=== PATIENT | female | born 1960 | race Caucasian/White ===

== ENCOUNTER 2018-08-18 04:28 | Inpatient (IN) ==
--- NOTE | 2018-08-18 04:37 | ED ---
HPI General Chief Complaint: Stroke Alert Stated Complaint: STROKE ALERT Time Seen by Provider: 08/18/18 04:33 Source: EMS Mode of arrival: EMS Limitations: no limitations History of Present Illness HPI Narrative: 58-year-old female presents to the emergency department by EMS transport for evaluation of new onset left-sided weakness and mutism. Patient reportedly went to bed in the early a.m. in preparation for awakening to travel to [place] to take her daughter for surgery. Patient had initially awakened along with the rest of the household and was reportedly normal and voicing no concerns or complaints and demonstrating no abnormalities. Patient subsequently was not seen by family for approximately 30 minutes while she reportedly was getting ready to leave and they were also getting dressed and prepared to leave for their trip to [place]. Reportedly daughter went to check on her mother and found her laying on the bed supine staring straight at the ceiling and nonverbal with a visible left facial droop and demonstrating left-sided weakness. Patient was awake was able to communicate using sign language but was completely nonverbal and mute. Patient was able to follow commands and had evidence of understanding but was not able to verbally communicate. EMS was called. No report of injury fall or past medical history nondiabetic no history of atrial fibrillation and no blood thinning agents taken by the patient and no prescription medications. According to EMS upon their arrival patient was still noted to have mild right facial droop and weakness of the left upper extremity. Patient was not able to ambulate to the stretcher due to left lower extremity weakness. Upon arrival to the emergency department patient with improvement of left upper extremity lower extremity strength however remains mute. Stroke alert had been called in the field prior to patient's arrival and upon her arrival telerad neurologist, Dr Gravse, was on line and evaluating the patient while en route to CT on EMS stretcher. Onset (ago): minute(s) (50) Time: 04:25 Last Observed Normal: 03:30 Timing confirmed by: family member Location: Reports speech, left face, left arm and left leg History of same: No Severity: severe Quality: Reports weak and improving Relieving factors: none Exacerbating factors: none Context: Reports sudden onset On Anticoagulants: No Associated symptoms: Denies confusion, chest pain, cough, diaphoresis, fever/ chills, headaches, loss of appetite, malaise, nausea/vomiting, vertigo, seizures , shortness of breath, syncope and weakness Treatments Prior to Arrival: Reports other (ns bolus 500 cc per EMS) Related Data Home Medications Medication Instructions Recorded Confirmed duloxetine [Cymbalta] 60 mg PO DAILY 08/18/18 08/18/18 Allergies Allergy/AdvReac Type Severity Reaction Status Date / Time No Known Allergies Allergy Verified 08/18/18 04:33 Review of Systems ROS: all other systems reviewed are negative PMFSH History History Provided By: Patient (no pmh) Medical History Medical History Depression (Acute) Surgical history unknown (Acute) Social History Social History Recent Travel in [facility] within the Last 8 Weeks: No Recent Out of Country Travel within the Last 8 Weeks: No Exam Narrative Exam Narrative: GENERAL: Well-developed well-nourished female awake in no apparent distress nonverbal GCS 11 (non-verbal communication gcs 15) SKIN: Focused skin assessment warm/dry. HEAD: Atraumatic. Normocephalic. EYES: Pupils equal and round and reactive to light. No scleral icterus. No injection or drainage. ENT: No nasal bleeding or discharge. Mucous membranes pink and moist. Airway is patent intact gag. NECK: Trachea midline. No JVD. CARDIOVASCULAR: Regular rate and rhythm. No murmur appreciated. RESPIRATORY: No accessory muscle use. Clear to auscultation. Breath sounds equal bilaterally. GASTROINTESTINAL: Abdomen soft, non-tender, nondistended. Hepatic and splenic margins not palpable. MUSCULOSKELETAL: No obvious deformities. No clubbing. No cyanosis. No edema. NEUROLOGICAL: Awake and alert. No obvious cranial nerve deficits. Motor grossly within normal limits. Expressive aphasia,mute. PSYCHIATRIC: Appropriate mood and affect; insight and judgment normal. Course Initial Documented Vital Signs Pulse Oximetry 95 08/18/18 04:55 Last Documented Vital Signs Pulse Oximetry 99 08/18/18 05:00 Critical Care Time Critical Care Time: Yes Total Critical Care Time: 30 Attestation: Aggregate critical care time was 30 minutes. Time to perform other separately billable procedures was not included in the critical care time. My time did not include minutes spent treating any other patients simultaneously or on activities that did not directly contribute to the patient's treatment. The services I provided to this patient were to treat and/or prevent clinically significant deterioration that could result in: Intracranial hemorrhage, respiratory arrest, I provided critical care services requiring my management, as noted below: Chart data review, documentation time, medication orders and management, vital sign assessments/reviewing monitor data, ordering and reviewing lab tests, ordering and interpreting/reviewing x-rays and diagnostic studies, care of the patient and discussion of the patient with the admitting physicians. NIH Stroke Scale NIH Stroke Scale Level of Consciousness: 0-Alert Orientation Questions: 0-Answers both correct Responds to Commands: 0-Both tasks correct Gaze Eye Movement: 0-Horizontal movement WNL Visual Sal: 0-No visual field defect Facial Movement: 0-Normal Motor Functions Arm LEFT: 0-No drift Motor Functions Arm RIGHT: 0-No drift Motor Functions Leg LEFT: 0-No drift Motor Functions Leg RIGHT: 0-No drift Limb Ataxia: 0-No ataxia Sensory Loss: 0-No sensory loss Best Language: 3-Mute or global aphasia Articulation: 2-Severe dysarthria Extinction or Inattention Sensory: 0-Absent Total: 5 Medical Decision Making MDM Narrative Medical decision making narrative: EMS arrival 4:[address] Graves --tele-rad 4:34; patient en route to CT on EMS stretcher CT result per radiologist Dr Claros: CT brain w/o contrast negative @ 4:50; order to proceed with TPA per Dr Graves; Dr Graves spoke with the patient's daughter (who witnessed the acute neurologic change and called [address] Graves obtained further history and tpa administration consent) by phone; tpa bolus at 0500, infusion started @ 5:10 Telerad conference call completed and Dr Graves signed off @ 5:50 patient saying simple words, son's name, "Migel", father's age at "70" (h/o stroke), city of residence,"[place]" At 555 son at bedside discussed with and accepted by Dr Pabon [facility] Medical Screen Exam Complete: Yes Emergency Medical Condition: Yes Differential Diagnosis Differential Diagnosis: Acute ischemic CVA, hemorrhagic CVA, transient global amnesia, conversion reaction, arrhythmia, paroxysmal atrial fibrillation Medical Records Medical records reviewed: Yes I reviewed the patient's medical records. 2004 biopsy of breast Lab Data Lab results reviewed: Yes I reviewed the patient's lab results. Result diagrams: 08/18/18 04:20 08/18/18 04:20 Lab Results 08/18/18 08/18/18 08/18/18 Range/Units 04:20 04:20 04:20 CBC w Diff Auto diff final WBC 5.2 (4.0-11.0) th/mm3 RBC 4.51 (4.00-5.30) mil/mm3 Hgb 13.4 (11.6-15.3) gm/dL Hct 41.3 (35.0-46.0) % MCV 91.5 (80.0-100.0) fL MCH 29.8 (27.0-34.0) pg MCHC 32.6 (32.0-36.0) % RDW 13.4 (11.6-17.2) % Plt Count 153 (150-450) th/mm3 MPV 10.2 (7.0-11.0) fL Neut % (Auto) 57.2 (16.0-70.0) % Lymph % (Auto) 34.0 (9.0-44.0) % Braxton % (Auto) 6.3 (0.0-8.0) % Eos % (Auto) 1.9 (0.0-4.0) % Baso % (Auto) 0.6 (0.0-2.0) % Neut # (Auto) 3.0 (1.8-7.7) th/mm3 Lymph # (Auto) 1.8 (1.0-4.8) th/mm3 Braxton # (Auto) 0.3 (0.0-0.9) th/mm3 Eos # (Auto) 0.1 (0.0-0.4) th/mm3 Baso # (Auto) 0.0 (0.0-0.2) th/mm3 WBC Differential . Differential Comment . PT 9.7 L (9.8-11.6) sec INR 1.0 Ratio APTT 27.5 (23.4-31.7) sec Fibrinogen 330 (227-377) mg/dL Sodium 141 (136-145) meq/L Potassium 4.0 (3.5-5.1) meq/L Chloride 108 H (98-107) meq/L Carbon Dioxide 25.0 (21.0-32.0) meq/L Anion Gap 8 (5-15) meq/L BUN 15 (7-18) mg/dL Creatinine 0.94 (0.50-1.00) mg/dL Estimated GFR 61 L (>89) mL/min Random Glucose 98 (74-106) mg/dL Calcium 8.6 (8.5-10.1) mg/dL Total Creatine Kinase (26-192) U/L Troponin I (0.02-0.05) ng/mL Beta HCG, Quant (0-5) mIU/mL 08/18/18 Range/Units 04:20 CBC w Diff WBC (4.0-11.0) th/mm3 RBC (4.00-5.30) mil/mm3 Hgb (11.6-15.3) gm/dL Hct (35.0-46.0) % MCV (80.0-100.0) fL MCH (27.0-34.0) pg MCHC (32.0-36.0) % RDW (11.6-17.2) % Plt Count (150-450) th/mm3 MPV (7.0-11.0) fL Neut % (Auto) (16.0-70.0) % Lymph % (Auto) (9.0-44.0) % Braxton % (Auto) (0.0-8.0) % Eos % (Auto) (0.0-4.0) % Baso % (Auto) (0.0-2.0) % Neut # (Auto) (1.8-7.7) th/mm3 Lymph # (Auto) (1.0-4.8) th/mm3 Braxton # (Auto) (0.0-0.9) th/mm3 Eos # (Auto) (0.0-0.4) th/mm3 Baso # (Auto) (0.0-0.2) th/mm3 WBC Differential Differential Comment PT (9.8-11.6) sec INR Ratio APTT (23.4-31.7) sec Fibrinogen (227-377) mg/dL Sodium (136-145) meq/L Potassium (3.5-5.1) meq/L Chloride (98-107) meq/L Carbon Dioxide (21.0-32.0) meq/L Anion Gap (5-15) meq/L BUN (7-18) mg/dL Creatinine (0.50-1.00) mg/dL Estimated GFR (>89) mL/min Random Glucose (74-106) mg/dL Calcium (8.5-10.1) mg/dL Total Creatine Kinase 44 (26-192) U/L Troponin I Less than 0.02 L (0.02-0.05) ng/mL Beta HCG, Quant 4 (0-5) mIU/mL Imaging Data Radiologist's impression: Head CT 08/18/18 04:34 CONCLUSION: No evidence of acute intracranial pathology. No masses are identified. The findings were discussed with Dr. Díaz at 0450. . Head CTA 08/18/18 04:34 CONCLUSION: Unremarkable CT angiography of the brain. Report was called by Dr. Claros to Dr. Graves at [id number]. Neck CTA 08/18/18 04:34 CONCLUSION: Negative CT angiography of the carotid arteries. Soft tissue density surrounding the thoracic arch as described above. Contrast- enhanced CT scan of the chest is recommended for further evaluation. ECG Data EKG Prior to Arrival: Yes Interpretation: EKG: Sinus tachycardia rate 100 occasional unifocal PVC age- indeterminate QS septal infarct incomplete left bundle branch block Discharge Plan Discharge Disposition Patient Disposition: 30 Still Patient Discharge Condition Condition: Stable Discharge Details Diagnosis: Acute ischemic stroke Physicians Team ED Provider: Winnie Díaz Primary Care Provider: Primary Care Dalton,Mayela Other Providers: Leonora Gold Rxs /Orders / Referrals /Forms Prescriptions: No Action duloxetine [Cymbalta] 60 mg Capsule,Delayed Release(Dr/Ec) 60 mg PO DAILY RF: 0 Status ED Status: With Doctor
[2018-08-18 04:48] LABS: Baso % (Auto) 0.6 % (0.0-2.0); Eos # (Auto) 0.1 th/mm3 (0.0-0.4); Eos % (Auto) 1.9 % (0.0-4.0); Hematocrit 41.3 % (35.0-46.0); Hemoglobin 13.4 gm/dL (11.6-15.3); Lymph # (Auto) 1.8 th/mm3 (1.0-4.8); Mean Corpuscular HGB Conc 32.6 % (32.0-36.0); Mean Corpuscular Hemoglobin 29.8 pg (27.0-34.0); Mean Corpuscular Volume 91.5 fL (80.0-100.0); Mean Platelet Volume 10.2 fL (7.0-11.0); Mono # (Auto) 0.3 th/mm3 (0.0-0.9); Mono % (Auto) 6.3 % (0.0-8.0); Neut % (Auto) 57.2 % (16.0-70.0); Platelet Count 153 th/mm3 (150-450); Red Blood Count 4.51 mil/mm3 (4.00-5.30); Red Cell Distribution Width 13.4 % (11.6-17.2); White Blood Count 5.2 th/mm3 (4.0-11.0)
--- NOTE | 2018-08-18 04:51 | CT ---
EXAM DATE: 08/18/2018 4:46 AM EDT AGE/SEX: 58 years / Female INDICATIONS: Stroke alert. CLINICAL DATA: This is the patient's initial encounter. Patient reports that signs and symptoms have been present for 1 day and indicates a pain score of Nonresponsive. MEDICAL/SURGICAL HISTORY: Non-responsive. Non-responsive. RADIATION DOSE: 54.27 CTDI (mGy) COMPARISON: No prior exams available for comparison. TECHNIQUE: CT of the head without contrast. Using automated exposure control and adjustment of the mA and/or kV according to patient size, radiation dose was kept as low as reasonably achievable to ob tain optimal diagnostic quality images. DICOM format image data is available electronically for revi ew and comparison. FINDINGS: Noncontrast axial head CT demonstrates the ventricles to be normal in size and configuration with a n ormal sulcal pattern. No acute intracranial hemorrhage, acute cortical infarction, mass or midline sh ift is seen. Posterior fossa structures are unremarkable. Bone windows are unremarkable. CONCLUSION: No evidence of acute intracranial pathology. No masses are identified. The findings were discussed w glenny Díaz at 0450. . Electronically signed by: Kevin Claros MD 08/18/2018 4:50 AM EDT
[2018-08-18] MEDS ORDERED: ALTEPLASE DRIP IV.SIG ONE (04:55)
[2018-08-18] MEDS ORDERED: Alteplase Bolus 9 MG/9 ML Syringe IV.PUSH ONE (04:55)
[2018-08-18 05:00] LABS: Calcium 8.6 mg/dL (8.5-10.1)
[2018-08-18 05:03] LABS: Activated Partial Thrombo Time 27.5 sec (23.4-31.7); Prothrombin Time 9.7 sec (9.8-11.6)
[2018-08-18 05:07] LABS: Beta HCG,Quantitative 4 mIU/mL (0-5)
--- NOTE | 2018-08-18 05:44 | CT ---
EXAM DATE: 08/18/2018 5:37 AM EDT AGE/SEX: 58 years / Female INDICATIONS: STROKE ALERT. CLINICAL DATA: This is the patient's initial encounter. Patient reports that signs and symptoms have been present for 1 day and indicates a pain score of Nonresponsive. MEDICAL/SURGICAL HISTORY: Non-responsive. Non-responsive. RADIATION DOSE: 43.07 CTDI (mGy) COMPARISON: No prior exams available for comparison. TECHNIQUE: Volumetric scanning was performed using a multirow detector CT scanner during bolus infus ion of 50 ml Visipaque 320 (iodixanol) nonionic water-soluble contrast as a single exam dose. The data was postprocessed with a variety of visualization algorithms including full-volume maximum inten sity projection, multiplanar sliding thin-slab reformation, curved-planar reformation, and surface-re ndering techniques. Using automated exposure control and adjustment of the mA and/or kV according to patient size, radiation dose was kept as low as reasonably achievable to obtain optimal diagnostic q uality images. DICOM format image data is available electronically for review and comparison. Percent stenosis is calculated using the diameter of the stenotic region over the diameter of the nor mal distal internal carotid artery. FINDINGS: No abnormality is identified within the lung apices. There is normal origin of vessels from the arch without evidence of proximal stenosis. Vertebral arteries are codominant. On the most inferior image there is more prominent soft tissue density than expected surrounding the transverse arch. This is no t entirely evaluated on this examination and contrast enhanced CT scan of the chest is recommended to further evaluate this. Examination of the right common carotid artery demonstrates the vessel to be widely patent. There is 0-10% stenosis at the origin of the internal carotid artery. More distally the cervical internal galvan tid artery is intact. Examination of the left common carotid artery demonstrates the vessel to be widely patent. Material c arotid More distally the cervical internal carotid artery is intact. Percent stenosis is calculated using the diameter of the stenotic region over the diameter of the nor mal distal internal carotid artery. CONCLUSION: Negative CT angiography of the carotid arteries. Soft tissue density surrounding the thoracic arch as described above. Contrast-enhanced CT scan of th e chest is recommended for further evaluation. Electronically signed by: Kevin Claros MD 08/18/2018 5:42 AM EDT
[2018-08-18 05:47] LABS: Creatine Kinase 44 U/L (26-192)
--- NOTE | 2018-08-18 05:55 | CT ---
EXAM DATE: 08/18/2018 5:47 AM EDT AGE/SEX: 58 years / Female INDICATIONS: STROKE ALERT. CLINICAL DATA: This is the patient's initial encounter. Patient reports that signs and symptoms have been present for 1 day and indicates a pain score of Nonresponsive. MEDICAL/SURGICAL HISTORY: Non-responsive. Non-responsive. RADIATION DOSE: 43.07 CTDI (mGy) ; Combined studies COMPARISON: No prior exams available for comparison. TECHNIQUE: Volumetric scanning was performed using a multi-row detector CT scanner during bolus infu parker of 50 ml Visipaque 320 (iodixanol) nonionic water-soluble contrast as a single exam dose. The data was post processed with a variety of visualization algorithms including full volume maximum int ensity projection, multi-planar sliding thin slab reformation, curved planar reformation, and surface rendering techniques. Using automated exposure control and adjustment of the mA and/or kV according to patient size, radiation dose was kept as low as reasonably achievable to obtain optimal diagnosti c quality images. DICOM format image data is available electronically for review and comparison. FINDINGS: There is excellent visualization of the major intracranial arteries out to the second-order branch ve ssels. There is no evidence for aneurysm, vessel truncation or stenosis, and no evidence for vascula r malformation. There is benign-appearing mucosal disease in the right maxillary sinus. There is a h ypoplastic A1 segment on the right. CONCLUSION: Unremarkable CT angiography of the brain. Report was called by Dr. Claros to Dr. Graves at [phone]. Electronically signed by: Kevin Claros MD 08/18/2018 5:54 AM EDT
[2018-08-18] MEDS ORDERED: Sodium Chlor 0.9% Inj 500 ML IV.SIG SCH ×2 (06:00→07:00)
--- NOTE | 2018-08-18 06:10 | MB ---
cc: Kevin Graves MD DATE: 08/18/2018 HISTORY OF PRESENT ILLNESS: The patient is a 58-year-old right-handed woman with some history of depression, otherwise totally healthy, who at about 3:30 a.m. this morning had laid down and then about 5 minutes later tried to get up. This was in front of the family. They were all up in the middle of the night because they were going to [place] and then she could not get off the couch. She seemed weak on her left arm. She could not talk at all. The letterpress printing machinist were called. They noted she was weak on the left arm and leg. She had a left facial droop and could not speak. She brought in for a stroke alert. REVIEW OF SYSTEMS: She denied any hypertension, diabetes, hypercholesterolemia, DC, CABG, cardiac arrhythmia, renal, hepatic or pulmonary disease, thyroid disease, lupus, ulcer, cancer or stroke. SOCIAL HISTORY: Not a smoker or drinker. Evidently lives in [place]. MEDICATIONS: None. She is not on any blood thinners. PHYSICAL EXAMINATION: Blood pressure 107. Sinus tachycardia to 100. No cardiac murmur. Her visual vance are full. Extraocular movements intact. Face is symmetric. Tongue was midline. There was no drift. She had normal strength in the upper and lower extremities bilaterally. Toes are downgoing bilaterally. Light touch was intact throughout. She has full comprehension and can follow all commands, but she cannot speak whatsoever, although she did at one time say I will try evidently to the nurse. She indicated she could not talk. DIAGNOSTIC DATA: CAT scan of the brain negative. LABORATORY DATA: Pending. IMPRESSION: Appears that she has had a stroke. PLAN: We are going to go ahead and give IV tPA. CTA will be ordered. Kevin Graves MD DJM/sv , 04:59 AM , 05:06 AM
--- NOTE | 2018-08-18 06:12 | MB ---
cc: Kevin Graves MD DATE: 08/18/2018 ADDENDUM: The patient's CTA preliminary appears to be negative. Her NIH stroke scale is a 3, however, being totally mute. I felt that this was a serious enough deficit and with the history of left-sided weakness to go ahead and give the tPA. Kevin Graves MD DJM/sv , 05:12 AM , 05:15 AM
[2018-08-18] MEDS ORDERED: Bisacodyl 10 MG Supp RECTAL PRN (06:23)
[2018-08-18] MEDS ORDERED: Acetaminophen 325 MG Tablet PO PRN (06:23)
[2018-08-18] MEDS ORDERED: Phenylephrine Inj 40 MG in Sodium Chlor 0.9% Inj 496 ML IV.CONT PRN (06:32)
--- NOTE | 2018-08-18 06:57 | XR ---
EXAM DATE: 08/18/2018 6:52 AM EDT AGE/SEX: 58 years / Female INDICATIONS: Stroke Alert. CLINICAL DATA: This is the patient's initial encounter. Patient reports that signs and symptoms have been present for 1 day and indicates a pain score of Nonresponsive. MEDICAL/SURGICAL HISTORY: Non-responsive. Non-responsive. COMPARISON: No prior exams available for comparison. FINDINGS: The cardiac silhouette is enlarged in transverse diameter. There is diffuse interstitial edema. There is no evidence of pneumonia. No pleural effusions are identified. CONCLUSION: Findings of interstitial edema. Electronically signed by: Kevin Claros MD 08/18/2018 6:56 AM EDT
[2018-08-18] MEDS: Sod Chloride 0.9% Inj 1,000 ML IV.CONT SCH ×2 (07:16→21:29)
[2018-08-18] MEDS ORDERED: Gadobutrol PF 10 MMOL/10 ML Vial (for RAD) IV.SIG ONE (08:43)
[2018-08-18 08:56] LABS: Thyroid Stimulating Hormone 5.76 uIU/mL (0.358-3.740)
--- NOTE | 2018-08-18 09:05 | MR ---
EXAM DATE: 08/18/2018 8:52 AM EDT AGE/SEX: 58 years / Female INDICATIONS: CVA. CLINICAL DATA: This is the patient's initial encounter. Patient reports that signs and symptoms have been present for 1 day and indicates a pain score of 0/10. MEDICAL/SURGICAL HISTORY: None. Total knee replacement, left. Total knee replacement, right. Appendectomy. COMPARISON: No prior exams available for comparison. TECHNIQUE: Multiplanar, multisequence examination of the brain was performed without and with 10 ml G adavist (gadobutrol) contrast as a single exam dose. FINDINGS: Cerebrum: The ventricles are normal for age. No evidence of midline shift, mass lesion, hemorrhage or acute infarction. No extraaxial fluid collections are seen. The pituitary gland and suprasellar cistern are normal in configuration. Vertically sella without deformity of the sella turcica. White Matter: Minimal periventricular white matter findings Posterior Fossa: The cerebellum and brainstem are intact. The 4th ventricle is midline. The cerebel lopontine angle is unremarkable. The cerebellar tonsils are normal in position. Diffusion Imaging: No focal areas of restricted diffusion are seen. No evidence of acute infarction . Extracranial: Moderate maxillary sinus disease with retention cyst on the left. Post Contrast: No abnormal areas of parenchymal or dural enhancement. No evidence of blood-brain ba rrier breakdown. CONCLUSION: 1. Negative for acute process 2. Prominent empty sella. 3. There is no restricted diffusion to suggest acute ischemic event. Electronically signed by: Andrew Spence MD 08/18/2018 9:03 AM EDT
[2018-08-18] MEDS: Senna/Docusate Sodium 8.6/50 MG Tablet PO SCH ×2 (10:16→21:29)
[2018-08-18] MEDS: Famotidine PF Inj 20 MG/2 ML Vial IV.PUSH SCH ×2 (10:16→21:29)
[2018-08-18 10:37] LABS: Free T4 (Free Thyroxine) 1.03 ng/dL (0.76-1.46)
--- NOTE | 2018-08-18 13:37 | ECHRPT ---
Indication: CVA/TIA CONCLUSIONS The left ventricular systolic function is severely reduced with an estimated ejection fraction less than 20%. Moderately dilated left ventricle. There is global left ventricular dysfunction. The right ventricular systoilc function is moderately decreased. Mild mitral valve regurgitation. The mitral valve regurgitation jet is directed centrally due to poor leaflet coaptation. There is trace tricuspid valve regurgitation. BP: 104 / 72 HR: 100 Rhythm: MEASUREMENTS (Male / Female) Normal Values Technical Quality:Fair 2D ECHO LV Diastolic Diameter PLAX 6.1 cm 4.2 - 5.9 / 3.9 - 5.3 cm LV Systolic Diameter PLAX 5.6 cm IVS Diastolic Thickness 1.0 cm 0.6 - 1.0 / 0.6 - 0.9 cm LVPW Diastolic Thickness 1.1 cm 0.6 - 1.0 / 0.6 - 0.9 cm LV Relative Wall Thickness 0.3 RV Internal Dim ED PLAX 2.9 cm LVOT Diameter 2.2 cm Aortic Root Diameter 2.8 cm LA Systolic Diameter LX 3.8 cm 3.0 - 4.0 / 2.7 - 3.8 cm M-MODE AV Cusp Separation MM 1.9 cm DOPPLER AV Peak Velocity 109.0 cm/s AV Peak Gradient 4.8 mmHg LVOT Peak Velocity 85.4 cm/s LVOT Peak Gradient 2.9 mmHg AV Area Cont Eq pk 3.0 cm Mitral E Point Velocity 85.4 cm/s LV E' Lateral Velocity 3.7 cm/s Mitral E to LV E' Lateral Ratio 23.2 LV E' Septal Velocity 5.8 cm/s Mitral E to LV E' Septal Ratio 14.9 TR Peak Velocity 251.0 cm/s TR Peak Gradient 25.2 mmHg Right Atrial Pressure 10.0 mmHg Pulmonary Artery Systolic Pressu 35.2 mmHg Right Ventricular Systolic Press 35.2 mmHg PV Peak Velocity 78.7 cm/s PV Peak Gradient 2.5 mmHg FINDINGS LEFT VENTRICLE Moderately dilated left ventricle. Mild concentric left ventricular hypertrophy. The left ventricular systolic function is severely reduced with an estimated ejection fraction less than 20%. There is global left ventricular dysfunction. RIGHT VENTRICLE The right ventricular size is normal. The right ventricular systoilc function is moderately decreased. LEFT ATRIUM The left atrial size is upper limits of normal. RIGHT ATRIUM The right atrial size is normal. ATRIAL SEPTUM Normal atrial septal thickness without atrial level shunting by limited color doppler interrogation. AORTA The aortic root and proximal ascending aorta are normal in size on limited imaging. MITRAL VALVE Structurally normal mitral valve. No mitral valve stenosis. Mild mitral valve regurgitation. The mitral valve regurgitation jet is directed centrally due to poor leaflet coaptation. AORTIC VALVE Trileaflet aortic valve. No aortic valve stenosis or regurgitation. TRICUSPID VALVE Structurally normal tricuspid valve. There is trace tricuspid valve regurgitation. The estimated pulmonary arterial pressure is 35 mmHg. PULMONARY VALVE No pulmonary valve regurgitation or stenosis. VESSELS The inferior vena cava is normal in size. Vincent Wang DO (Electronically Signed) Final Date:18 August 2018 13:37
--- NOTE | 2018-08-18 17:57 | P.HPCC ---
History of Present Illness Service: Critical care medicine Primary Care Physician: No Primary Care Physician Chief Complaint: Loss of speech, left-sided weakness History of Present Illness: 58-year-old female with no major medical problems who developed sudden onset loss of speech this morning with left-sided weakness for which EMS was called and patient was brought to the ER at [facility]. A stroke alert was called and Dr. Graves from neurology evaluated patient by [facility]. Head CT was negative for bleed, CTA was unremarkable. Patient was administered IV TPA and subsequently accepted for admission by critical care medicine service and admitted to the ICU. Her symptoms resolved immediately after TPA administration. Subsequent MRI brain did not show any restricted diffusion. Patient did not have any focal deficits and regain her speech and was moved to the ICU. When I evaluated her at this evening she was laying in bed not in any acute distress moving all 4 extremities with normal speech. She felt that she is back to normal. She denied any similar episodes before. 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 She tells me she has had some PVCs before for which she had a cardiac catheterization done in 2016 in [place] and everything was normal. Patient has had bilateral total knee replacements a few years ago. Inpatient Certification: I certify that the inpatient services were ordered in accordance with Medicare regulations governing the order. This includes certification that hospital inpatient services are reasonable and necessary and in the case of services not specified as inpatient-only under 42 CFR 419.22(n), that they are appropriately provided as inpatient services in accordance to with the 2-midnight benchmark under 43 CFR 412.3(e) Estimated Total Length of Stay (Days): 3 Plans for Post Hospital Care: Home Review of Systems All other systems reviewed negative except as stated in [facility] - History History Provided By: Patient (no pmh) - Medical History Medical History: Medical History (Last Updated 08/18/18 @ 17:45 by Erick Ann MD) Depression Medical history unknown Surgical history unknown Surgical history unknown - Tobacco History Smoking Status: Cognitive impairment - Alcohol History How Often Do You Have a Drink Containing Alcohol: Unable to Obtain - Travel History Recent Travel in the [place] Within the Last 8 Weeks: No Recent Travel Out of the Country Within the Last 8 Weeks: No - Immunization History Tetanus Immunization: <5 Years Hx Influenza Vaccine This Season: No Medications and Allergies Active Medications: Active Medications Acetaminophen (Tylenol) 650 mg PO Q6H PRN PRN Reason: PAIN 1-10 AND/OR FEVER >101F Al Hydroxide/Mg Hydroxide (Milk Of Magnesia Liq) 30 ml PO Q12H PRN PRN Reason: Mild Constipation Albuterol (Duoneb Neb (Prn)) 1 ampul NEB Q2HR NEB PRN PRN Reason: WHEEZING Bisacodyl (Dulcolax Supp) 10 mg RECTAL DAILY PRN PRN Reason: SEVERE CONSITIPATION Chlorhexidine Gluconate (Chlorhexidine 2% Cloth) 3 pack TOPICAL DAILY@0400 PRN PRN Reason: Extra cloth needed Stop: 08/24/18 03:59 Chlorhexidine Gluconate (Chlorhexidine 2% Cloth) 3 pack TOPICAL DAILY@0400 [facility] Stop: 08/24/18 03:59 Famotidine (Pepcid Pf Inj) 20 mg IV.PUSH Q12HR [facility] Last Admin: 08/18/18 10:16 Dose: 20 mg Sodium Chloride (Ns Inj) 1,000 mls @ 70 mls/hr IV.CONT .[id number] [facility] Last Admin: 08/18/18 07:16 Dose: 70 mls/hr Phenylephrine HCl 40 mg/ (Sodium Chloride) 500 mls @ 30 mls/hr IV.CONT TITRATE PRN; Protocol PRN Reason: See Protocol Lactulose (Lactulose Liq) 30 ml PO DAILY PRN PRN Reason: SEVERE CONSITIPATION Ondansetron HCl (Zofran Inj) 4 mg IV.PUSH Q6H PRN PRN Reason: NAUSEA OR VOMITING Senna/Docusate Sodium (Sheree-Colace) 1 tab PO BID [facility] Last Admin: 08/18/18 10:16 Dose: Not Given Sennosides (Senokot) 17.2 mg PO Q12H PRN PRN Reason: Moderate Constipation Sodium Chloride (Ns Flush) 2 ml IV.FLUSH BID [facility] Last Admin: 08/18/18 10:16 Dose: Not Given Sodium Chloride (Ns Flush) 2 ml IV.FLUSH PRN PRN PRN Reason: FLUSH AFTER USING IV ACCESS Terbutaline Sulfate (Brethine Inj) 1 mg SQ UNSCH PRN PRN Reason: For Extravasation Allergies Allergy/AdvReac Type Severity Reaction Status Date / Time No Known Allergies Allergy Verified 08/18/18 04:33 Home Medications Medication Instructions Recorded Confirmed Type duloxetine [Cymbalta] 60 mg PO DAILY 08/18/18 08/18/18 History Results - Labs CBC & Chem 7: 08/18/18 04:20 08/18/18 04:20 Labs: Short CBC 08/18/18 Range/Units 04:20 WBC 5.2 (4.0-11.0) th/mm3 Hgb 13.4 (11.6-15.3) gm/dL Hct 41.3 (35.0-46.0) % Plt Count 153 (150-450) th/mm3 BMP 08/18/18 04:20 Sodium 141 Potassium 4.0 Chloride 108 H Carbon Dioxide 25.0 BUN 15 Creatinine 0.94 Calcium 8.6 Cardiac Enzymes 08/18/18 Range/Units 04:20 Total Creatine Kinase 44 (26-192) U/L Troponin I Less than 0.02 L (0.02-0.05) ng/mL - Imaging Impressions Chest X-Ray 08/18/18 04:34 CONCLUSION: Findings of interstitial edema. Head CT 08/18/18 04:34 CONCLUSION: No evidence of acute intracranial pathology. No masses are identified. The findings were discussed with Dr. Díaz at 0450. . Head CTA 08/18/18 04:34 CONCLUSION: Unremarkable CT angiography of the brain. Report was called by Dr. Claros to Dr. Graves at 05. Neck CTA 08/18/18 04:34 CONCLUSION: Negative CT angiography of the carotid arteries. Soft tissue density surrounding the thoracic arch as described above. Contrast- enhanced CT scan of the chest is recommended for further evaluation. Head MRI 08/18/18 07:18 CONCLUSION: 1. Negative for acute process 2. Prominent empty sella. 3. There is no restricted diffusion to suggest acute ischemic event. Exam Vital signs: Vital Signs 08/18/18 04:55 08/18/18 04:56 08/18/18 05:00 Temperature 98.1 F Pulse Rate Respiratory Rate Blood Pressure Pulse Oximetry 95 99 08/18/18 05:02 08/18/18 05:17 08/18/18 05:32 Temperature Pulse Rate 103 H 105 H 98 H Respiratory Rate 16 16 16 Blood Pressure 134/70 103/69 93/68 L Pulse Oximetry 96 95 95 08/18/18 05:47 08/18/18 06:02 08/18/18 06:17 Temperature Pulse Rate 98 H 100 H 98 H Respiratory Rate 16 16 16 Blood Pressure 102/69 106/70 92/64 L Pulse Oximetry 96 96 96 08/18/18 06:32 08/18/18 06:47 08/18/18 07:02 Temperature 97.9 F Pulse Rate 101 H 100 H 99 H Respiratory Rate 16 16 16 Blood Pressure 108/67 104/63 105/62 Pulse Oximetry 99 99 98 08/18/18 07:32 08/18/18 08:00 08/18/18 08:02 Temperature Pulse Rate 98 H 84 99 H Respiratory Rate 16 Blood Pressure 107/62 90/66 L Pulse Oximetry 98 98 98 08/18/18 09:03 08/18/18 09:14 08/18/18 09:30 Temperature Pulse Rate 98 H 102 H Respiratory Rate 14 14 Blood Pressure 116/76 107/81 Pulse Oximetry 98 98 08/18/18 10:00 08/18/18 10:30 08/18/18 11:00 Temperature Pulse Rate 100 H 104 H 104 H Respiratory Rate 16 24 20 Blood Pressure 104/72 111/71 111/75 Pulse Oximetry 97 96 92 L 08/18/18 11:03 08/18/18 11:30 08/18/18 12:00 Temperature Pulse Rate 98 H 94 H Respiratory Rate 14 18 Blood Pressure 118/82 100/68 Pulse Oximetry 95 95 94 L 08/18/18 12:30 08/18/18 13:00 08/18/18 13:30 Temperature Pulse Rate 90 108 H 94 H Respiratory Rate 25 H 41 H 13 Blood Pressure 108/85 113/83 Pulse Oximetry 94 L 95 94 L 08/18/18 14:00 08/18/18 14:30 08/18/18 15:00 Temperature Pulse Rate 96 H 94 H 100 H Respiratory Rate 13 12 12 Blood Pressure 107/75 112/80 111/83 Pulse Oximetry 94 L 96 97 08/18/18 15:30 08/18/18 16:00 08/18/18 16:30 Temperature Pulse Rate 104 H 102 H 96 H Respiratory Rate 13 32 H 14 Blood Pressure 112/83 107/72 104/71 Pulse Oximetry 99 97 93 L 08/18/18 17:00 Temperature 97.9 F Pulse Rate 100 H Respiratory Rate 22 Blood Pressure 107/73 Pulse Oximetry 97 Intake & Output 08/17/18 08/18/18 08/18/18 18:59 06:59 18:59 Intake Total 500 / 500 Balance 500 / 500 Weight 104 kg Intake: IV 500 / 500 Activase Drip 77 MG In Bag/ Syringe 1 EACH @ 77 mls/hr IV. SIG ONCE ONE Rx#:[id number] NS Inj 500 ML @ 1000 mls/hr IV. 0 / 0 500 / 500 SIG BOLUS ISABELA Rx#:[id number] Other: Date of Last Bowel Movement 08/17/18 Narrative: HEENT/Neuro: No pallor or icterus, tongue moist, KOMAL, Awake alert oriented 3 , speech normal, power 5 x 5 bilaterally upper and lower extremities. Neck: No JVD Chest/pulmonary: CTA bilaterally Cardiovascular: S1-S2 regular no gallop or murmur GI/abdomen: Soft, nontender, bowel sounds present Extremities: Warm bilaterally, no edema Caprini VTE Risk Assessment Caprini VTE Risk Assessment: Moderate/High Risk (score >= 2) Caprini Risk Assessment Model: Point Value = 1 Point Value = 2 Point Value = 3 Point Value = 5 Age 41-60 Minor surgery BMI > 25 kg/m2 Swollen legs Varicose veins or History of unexplained or recurrent spontaneous Oral contraceptives or hormone replacement Sepsis (< 1 month) Serious lung disease, including pneumonia (< 1 month) Abnormal pulmonary function Acute myocardial infarction Congestive heart failure (< 1 month) History of inflammatory bowel disease Medical patient at bed rest Age 61-74 Arthroscopic surgery Major open surgery (> 45 min) Laparoscopic surgery (> 45 min) Malignancy Confined to bed (> 72 hours) Immobilizing plaster cast Central venous access Age >= 75 History of VTE Family history of VTE Factor V Leiden Prothrombin [id number] Lupus anticoagulant Anticardiolipin antibodies Elevated serum homocysteine Heparin-induced thrombocytopenia Other congenital or acquired thrombophilia Stroke (< 1 month) Elective arthroplasty Hip, pelvis, or leg fracture Acute spinal cord injury (< 1 month) Prophylaxis Regimen: Total Risk Factor Score Risk Level Prophylaxis Regimen 0-1 Low Early ambulation 2 Moderate Order ONE of the following: *Sequential Compression Device (SCD) *Heparin 5000 units SQ BID 3-4 Higher Order ONE of the following medications: *Heparin 5000 units SQ TID *Enoxaparin/Lovenox 40 mg SQ daily (WT < 150 kg, CrCl > 30 mL/min) *Enoxaparin/Lovenox 30 mg SQ daily (WT < 150 kg, CrCl > 10-29 mL/min) *Enoxaparin/Lovenox 30 mg SQ BID (WT < 150 kg, CrCl > 30 mL/min) AND/OR *Sequential Compression Device (SCD) 5 or more Highest Order ONE of the following medications: *Heparin 5000 units SQ TID (Preferred with Epidurals) *Enoxaparin/Lovenox 40 mg SQ daily (WT < 150 kg, CrCl > 30 mL/min) *Enoxaparin/Lovenox 30 mg SQ daily (WT < 150 kg, CrCl > 10-29 mL/min) *Enoxaparin/Lovenox 30 mg SQ BID (WT < 150 kg, CrCl > 30 mL/min) AND *Sequential Compression Device (SCD) Assessment and Plan - Assessment and Plan Plan: 58-year-old female with: Speech disturbance and left-sided weakness with suspected stroke alert status post IV TPA Cardiomyopathy Plan: -Admitted to ICU -Neurochecks per protocol -Follow stroke protocol -MRI brain normal with no restricted diffusion. -Status post IV TPA. -Neurology consulted -Repeat head CT per protocol tomorrow morning -Antiplatelet therapy to be decided by neurology -Continue telemetry -2D echo with LVEF 20%, global LV dysfunction, mild mitral regurgitation -Cardiology consulted for further evaluation of cardiomyopathy. Will obtain records from cardiac cath done in 2016 and declined. -Head and neck CTA negative Patient will be transferred to hospitalist service for further medical management. Critical care will be signing off, please reconsult if needed.
--- NOTE | 2018-08-18 18:15 | P.PNNEU ---
Subjective Active Medications: Active Medications Acetaminophen (Tylenol) 650 mg PO Q6H PRN PRN Reason: PAIN 1-10 AND/OR FEVER >101F Al Hydroxide/Mg Hydroxide (Milk Of Magnesia Liq) 30 ml PO Q12H PRN PRN Reason: Mild Constipation Albuterol (Duoneb Neb (Prn)) 1 ampul NEB Q2HR NEB PRN PRN Reason: WHEEZING Bisacodyl (Dulcolax Supp) 10 mg RECTAL DAILY PRN PRN Reason: SEVERE CONSITIPATION Chlorhexidine Gluconate (Chlorhexidine 2% Cloth) 3 pack TOPICAL DAILY@0400 PRN PRN Reason: Extra cloth needed Stop: 08/24/18 03:59 Chlorhexidine Gluconate (Chlorhexidine 2% Cloth) 3 pack TOPICAL DAILY@0400 [facility] Stop: 08/24/18 03:59 Famotidine (Pepcid Pf Inj) 20 mg IV.PUSH Q12HR [facility] Last Admin: 08/18/18 10:16 Dose: 20 mg Sodium Chloride (Ns Inj) 1,000 mls @ 70 mls/hr IV.CONT .[id number] [facility] Last Admin: 08/18/18 07:16 Dose: 70 mls/hr Phenylephrine HCl 40 mg/ (Sodium Chloride) 500 mls @ 30 mls/hr IV.CONT TITRATE PRN; Protocol PRN Reason: See Protocol Lactulose (Lactulose Liq) 30 ml PO DAILY PRN PRN Reason: SEVERE CONSITIPATION Ondansetron HCl (Zofran Inj) 4 mg IV.PUSH Q6H PRN PRN Reason: NAUSEA OR VOMITING Senna/Docusate Sodium (Sheree-Colace) 1 tab PO BID [facility] Last Admin: 08/18/18 10:16 Dose: Not Given Sennosides (Senokot) 17.2 mg PO Q12H PRN PRN Reason: Moderate Constipation Sodium Chloride (Ns Flush) 2 ml IV.FLUSH BID [facility] Last Admin: 08/18/18 10:16 Dose: Not Given Sodium Chloride (Ns Flush) 2 ml IV.FLUSH PRN PRN PRN Reason: FLUSH AFTER USING IV ACCESS Terbutaline Sulfate (Brethine Inj) 1 mg SQ UNSCH PRN PRN Reason: For Extravasation Allergies/Adverse Reactions: Allergies Allergy/AdvReac Type Severity Reaction Status Date / Time No Known Allergies Allergy Verified 08/18/18 04:33 Physical Exam Vital signs: Vital Signs 08/18/18 04:55 08/18/18 04:56 08/18/18 05:00 Temperature 98.1 F Pulse Rate Respiratory Rate Blood Pressure Pulse Oximetry 95 99 08/18/18 05:02 08/18/18 05:17 08/18/18 05:32 Temperature Pulse Rate 103 H 105 H 98 H Respiratory Rate 16 16 16 Blood Pressure 134/70 103/69 93/68 L Pulse Oximetry 96 95 95 08/18/18 05:47 08/18/18 06:02 08/18/18 06:17 Temperature Pulse Rate 98 H 100 H 98 H Respiratory Rate 16 16 16 Blood Pressure 102/69 106/70 92/64 L Pulse Oximetry 96 96 96 08/18/18 06:32 08/18/18 06:47 08/18/18 07:02 Temperature 97.9 F Pulse Rate 101 H 100 H 99 H Respiratory Rate 16 16 16 Blood Pressure 108/67 104/63 105/62 Pulse Oximetry 99 99 98 08/18/18 07:32 08/18/18 08:00 08/18/18 08:02 Temperature Pulse Rate 98 H 84 99 H Respiratory Rate 16 Blood Pressure 107/62 90/66 L Pulse Oximetry 98 98 98 08/18/18 09:03 08/18/18 09:14 08/18/18 09:30 Temperature Pulse Rate 98 H 102 H Respiratory Rate 14 14 Blood Pressure 116/76 107/81 Pulse Oximetry 98 98 08/18/18 10:00 08/18/18 10:30 08/18/18 11:00 Temperature Pulse Rate 100 H 104 H 104 H Respiratory Rate 16 24 20 Blood Pressure 104/72 111/71 111/75 Pulse Oximetry 97 96 92 L 08/18/18 11:03 08/18/18 11:30 08/18/18 12:00 Temperature Pulse Rate 98 H 94 H Respiratory Rate 14 18 Blood Pressure 118/82 100/68 Pulse Oximetry 95 95 94 L 08/18/18 12:30 08/18/18 13:00 08/18/18 13:30 Temperature Pulse Rate 90 108 H 94 H Respiratory Rate 25 H 41 H 13 Blood Pressure 108/85 113/83 Pulse Oximetry 94 L 95 94 L 08/18/18 14:00 08/18/18 14:30 11/02/18 15:00 Temperature Pulse Rate 96 H 94 H 100 H Respiratory Rate 13 12 12 Blood Pressure 107/75 112/80 111/83 Pulse Oximetry 94 L 96 97 08/18/18 15:30 08/18/18 16:00 08/18/18 16:30 Temperature Pulse Rate 104 H 102 H 96 H Respiratory Rate 13 32 H 14 Blood Pressure 112/83 107/72 104/71 Pulse Oximetry 99 97 93 L 08/18/18 17:00 Temperature 97.9 F Pulse Rate 100 H Respiratory Rate 22 Blood Pressure 107/73 Pulse Oximetry 97 Intake & Output 08/17/18 08/18/18 08/18/18 18:59 06:59 18:59 Intake Total 500 / 500 Balance 500 / 500 Weight 104 kg Intake: IV 500 / 500 Activase Drip 77 MG In Bag/ Syringe 1 EACH @ 77 mls/hr IV. SIG ONCE ONE Rx#:[id number] NS Inj 500 ML @ 1000 mls/hr IV. 0 / 0 500 / 500 SIG BOLUS ISABELA Rx#:[id number] Other: Date of Last Bowel Movement 08/17/18 Narrative: vff face sym 5/5 nl speech now nl affect Objective Laboratory Results - last 24 hr 08/18/18 08/18/18 08/18/18 04:20 04:20 04:20 CBC w Diff Auto diff final WBC 5.2 RBC 4.51 Hgb 13.4 Hct 41.3 MCV 91.5 MCH 29.8 MCHC 32.6 RDW 13.4 Plt Count 153 MPV 10.2 Neut % (Auto) 57.2 Lymph % (Auto) 34.0 [place] % (Auto) 6.3 Eos % (Auto) 1.9 Baso % (Auto) 0.6 Neut # (Auto) 3.0 Lymph # (Auto) 1.8 [place] # (Auto) 0.3 Eos # (Auto) 0.1 Baso # (Auto) 0.0 WBC Differential . Differential Comment . ESR PT 9.7 L INR 1.0 APTT 27.5 Fibrinogen 330 Sodium 141 Potassium 4.0 Chloride 108 H Carbon Dioxide 25.0 Anion Gap 8 BUN 15 Creatinine 0.94 Estimated GFR 61 L Random Glucose 98 Calcium 8.6 Total Creatine Kinase Troponin I Vitamin B12 TSH Free T4 Beta HCG, Quant Nasal Screen MRSA (PCR) Blood Type Blood Type Recheck Antibody Screen 08/18/18 08/18/18 08/18/18 04:20 04:20 04:20 CBC w Diff WBC RBC Hgb Hct MCV MCH MCHC RDW Plt Count MPV Neut % (Auto) Lymph % (Auto) [place] % (Auto) Eos % (Auto) Baso % (Auto) Neut # (Auto) Lymph # (Auto) [place] # (Auto) Eos # (Auto) Baso # (Auto) WBC Differential Differential Comment ESR 11 PT INR APTT Fibrinogen Sodium Potassium Chloride Carbon Dioxide Anion Gap BUN Creatinine Estimated GFR Random Glucose Calcium Total Creatine Kinase 44 Troponin I Less than 0.02 L Vitamin B12 334 TSH 5.760 H Free T4 1.03 Beta HCG, Quant 4 Nasal Screen MRSA (PCR) Blood Type Blood Type Recheck Antibody Screen 08/18/18 08/18/18 04:52 10:13 CBC w Diff WBC RBC Hgb Hct MCV MCH MCHC RDW Plt Count MPV Neut % (Auto) Lymph % (Auto) [place] % (Auto) Eos % (Auto) Baso % (Auto) Neut # (Auto) Lymph # (Auto) [place] # (Auto) Eos # (Auto) Baso # (Auto) WBC Differential Differential Comment ESR PT INR APTT Fibrinogen Sodium Potassium Chloride Carbon Dioxide Anion Gap BUN Creatinine Estimated GFR Random Glucose Calcium Total Creatine Kinase Troponin I Vitamin B12 TSH Free T4 Beta HCG, Quant Nasal Screen MRSA (PCR) Not detected Blood Type A Positive Blood Type Recheck Required Antibody Screen Negative Review/Management - Review/Management Plan: imp mri shows left frontal infarct acutely ef 20% ctax2 neg labs ok LA nl i thinks she should be anticoagulated with low ef and cva ct chest for ? mass needs fu cards to be consulted labs neg hyper pend coumadin or eliquis ok by me if fu ct no blood sp tpa
--- NOTE | 2018-08-18 18:45 | MG ---
cc: Leonora Gold MD,Kevin Puckett MD ELECTROENCEPHALOGRAM NUMBER: [id number] REFERRING PHYSICIAN: Kevin Graves MD AGE: 58 CLINICAL HISTORY: In room 8407. Stroke alert. Awake, drowsy, asleep with photic stimulation. MRI negative for anything acute. A 58-year-old woman who came in unable to get off the sofa with left arm weakness. History of depression. No medicines listed. DESCRIPTION OF RECORD: A low-amplitude EEG overall with some questionable slowing predominantly of theta frequency. No epileptiform features. EKG cannot be interpreted. Photic stimulation did elicit a good posterior driving response. The patient was asked her name and got it correct, the month, the location. IMPRESSION: At times, there was some slowing of background that may have been due to the patient falling asleep. Other times, there was a normal alpha. Overall, a fairly normal-appearing study otherwise without any epileptiform features or attenuation in one location. Clinical correlation. MD ARLEN Alexandra/kodi , 06:28 PM , 06:32 PM
--- NOTE | 2018-08-18 20:01 | ECG ---
Date Performed: 08/18/2018 Time Performed: 05:46:45 PTAGE: 58 years EKG: SINUS TACHYCARDIA WITH OCCASIONAL VENTRICULAR PREMATURE COMPLEXES Poor R-wave progression C annot exclude anteroseptal infarct versus lead placement. Mild Nonspecific interventricular conductio n delay ABNORMAL ECG NO PREVIOUS TRACING DOCTOR: Navid Morrison Interpretating Date/Time 08/18/2018 19:59:32
[2018-08-18 22:12] LABS: Bilirubin,Urine Negative (Negative); Clarity,Urine Clear (Clear); Color,Urine Yellow (Yellw/Straw); Glucose,Urine (UA) Negative (Negative); Leukocyte Esterase,Urine Trace (Negative); Nitrite,Urine Negative (Negative); PH,Urine 5.5 (5.0-8.5); Specific Gravity,Urine 1.015 (1.002-1.035); Urobilinogen,Urine 0.2 mg/dL (Less than 2)
[2018-08-18 22:19] LABS: Bacteria,Urine Few /hpf; Squamous Epithelial Cell,Urine 0-5 /hpf (0-5)
[2018-08-18 22:23] LABS: Amphetamine Screen,Urine Pos (Neg); Barbiturate Screen,Urine Neg (Neg); Cannabinoid Screen,Urine Neg (Neg); Cocaine Screen,Urine Neg (Neg)
[2018-08-18 22:26] LABS: Opiate Screen,Urine Neg (Neg)
[2018-08-19] MEDS ORDERED: Chlorhexidine Gluconate 2% 1 Pack (2 Cloths) TOPICAL PRN (04:00)
--- NOTE | 2018-08-19 05:55 | P.PN ---
Subjective Interval history: F/U CVA. Patient seen with family. Patient planes of slight dyspnea on exertion. Currently on room air. Physical Exam Vital signs: Vital Signs 08/18/18 06:02 08/18/18 06:17 08/18/18 06:32 Temperature Pulse Rate 100 H 98 H 101 H Respiratory Rate 16 16 16 Blood Pressure 106/70 92/64 L 108/67 Pulse Oximetry 96 96 99 08/18/18 06:47 08/18/18 07:02 08/18/18 07:32 Temperature 97.9 F Pulse Rate 100 H 99 H 98 H Respiratory Rate 16 16 16 Blood Pressure 104/63 105/62 107/62 Pulse Oximetry 99 98 98 08/18/18 08:00 08/18/18 08:02 08/18/18 09:03 Temperature Pulse Rate 84 99 H Respiratory Rate Blood Pressure 90/66 L 116/76 Pulse Oximetry 98 98 08/18/18 09:14 08/18/18 09:30 08/18/18 10:00 Temperature Pulse Rate 98 H 102 H 100 H Respiratory Rate 14 14 16 Blood Pressure 107/81 104/72 Pulse Oximetry 98 98 97 08/18/18 10:30 08/18/18 11:00 08/18/18 11:03 Temperature Pulse Rate 104 H 104 H Respiratory Rate 24 20 Blood Pressure 111/71 111/75 Pulse Oximetry 96 92 L 95 08/18/18 11:30 08/18/18 12:00 08/18/18 12:30 Temperature Pulse Rate 98 H 94 H 90 Respiratory Rate 14 18 25 H Blood Pressure 118/82 100/68 108/85 Pulse Oximetry 95 94 L 94 L 08/18/18 13:00 08/18/18 13:30 08/18/18 14:00 Temperature Pulse Rate 108 H 94 H 96 H Respiratory Rate 41 H 13 13 Blood Pressure 113/83 107/75 Pulse Oximetry 95 94 L 94 L 08/18/18 14:30 08/18/18 15:00 08/18/18 15:30 Temperature Pulse Rate 94 H 100 H 104 H Respiratory Rate 12 12 13 Blood Pressure 112/80 111/83 112/83 Pulse Oximetry 96 97 99 08/18/18 16:00 08/18/18 16:30 08/18/18 17:00 Temperature 97.9 F Pulse Rate 102 H 96 H 100 H Respiratory Rate 32 H 14 22 Blood Pressure 107/72 104/71 107/73 Pulse Oximetry 97 93 L 97 08/18/18 17:30 08/18/18 18:00 08/18/18 18:30 Temperature Pulse Rate 96 H 100 H Respiratory Rate 16 16 Blood Pressure 108/78 105/71 Pulse Oximetry 94 L 99 95 08/18/18 19:00 08/18/18 19:31 08/18/18 20:00 Temperature 97.7 F Pulse Rate 108 H 104 H 100 H Respiratory Rate 21 23 24 Blood Pressure 104/79 100/66 Pulse Oximetry 97 94 L 94 L 08/18/18 21:00 08/18/18 21:05 08/18/18 22:00 Temperature Pulse Rate 104 H 114 H Respiratory Rate 19 29 H Blood Pressure 95/59 L 113/79 Pulse Oximetry 94 L 97 96 08/18/18 23:00 08/19/18 00:00 08/19/18 01:00 Temperature 98.8 F Pulse Rate 106 H 106 H 106 H Respiratory Rate 16 16 21 Blood Pressure 113/84 116/86 107/78 Pulse Oximetry 96 95 95 Intake & Output 08/18/18 08/18/18 08/19/18 06:59 18:59 06:59 Intake Total 77 / 77 500 / 500 1000 / 1000 Balance 77 / 77 500 / 500 1000 / 1000 Weight 104 kg 105 kg Intake: IV 77 / 77 500 / 500 1000 / 1000 NS Inj 1,000 ML @ 70 mls/hr IV. 1000 / 1000 CONT .[id number] [facility] Rx#: [id number] Activase Drip 77 MG In Bag/ 77 / 77 Syringe 1 EACH @ 77 mls/hr IV. SIG ONCE ONE Rx#:[id number] NS Inj 500 ML @ 1000 mls/hr IV. 0 / 0 500 / 500 SIG BOLUS [facility] Rx#:[id number] Other: Date of Last Bowel Movement 08/17/18 Weight On Admission 104 kg Narrative: GENERAL: WD WN in [place] SKIN: Warm and dry. CARDIOVASCULAR: Regular rate and rhythm. RESPIRATORY: No accessory muscle use. Clear to auscultation. Breath sounds equal bilaterally. GASTROINTESTINAL: Abdomen soft, non-tender, nondistended. MUSCULOSKELETAL: Extremities without clubbing, cyanosis, or edema. No obvious deformities. NEUROLOGICAL: Awake and alert. No obvious cranial nerve deficits. Motor grossly within normal limits. Five out of 5 muscle strength in the arms and legs. Normal speech. PSYCHIATRIC: Appropriate mood and affect; insight and judgment normal. Results - Labs CBC & Chem 7: 08/18/18 04:20 08/19/18 07:03 Laboratory Results - last 24 hr 08/18/18 08/18/18 08/18/18 04:20 04:20 04:52 ESR 11 Vitamin B12 334 TSH 5.760 H Free T4 1.03 Urine Color Urine Clarity Urine pH Ur Specific Avella Urine Protein Urine Glucose (UA) Urine Ketones Urine Occult Blood Urine Nitrate Urine Bilirubin Urine Urobilinogen Ur Leukocyte Esterase Urine WBC Urine WBC Clumps Ur Squamous Epith Cells Urine Bacteria Micro UA Comment Ur Microscopic Review Urine Culture Comments Nasal Screen MRSA (PCR) Urine Opiates Screen Ur Barbiturates Screen Ur Amphetamines Screen U Benzodiazepines Scrn Urine Cocaine Screen U Cannabinoids Screen Blood Type A Positive Blood Type Recheck Required Antibody Screen Negative 08/18/18 08/18/18 08/18/18 10:13 22:03 22:03 ESR Vitamin B12 TSH Free T4 Urine Color Yellow Urine Clarity Clear Urine pH 5.5 Ur Specific Avella 1.015 Urine Protein Negative Urine Glucose (UA) Negative Urine Ketones Negative Urine Occult Blood Trace Urine Nitrate Negative Urine Bilirubin Negative Urine Urobilinogen 0.2 Ur Leukocyte Esterase Trace H Urine WBC 9-20 H Urine WBC Clumps Occasional H Ur Squamous Epith Cells 0-5 Urine Bacteria Few H Micro UA Comment Culture indicated Ur Microscopic Review Microscopic reviewed Urine Culture Comments Culture indicated Nasal Screen MRSA (PCR) Not detected Urine Opiates Screen Neg Ur Barbiturates Screen Neg Ur Amphetamines Screen Pos H U Benzodiazepines Scrn Neg Urine Cocaine Screen Neg U Cannabinoids Screen Neg Blood Type Blood Type Recheck Antibody Screen - Imaging ITS Impressions Chest X-Ray 08/18/18 04:34 CONCLUSION: Findings of interstitial edema. Head CT 08/18/18 04:34 CONCLUSION: No evidence of acute intracranial pathology. No masses are identified. The findings were discussed with Dr. Díaz at 0450. . Head CTA 08/18/18 04:34 CONCLUSION: Unremarkable CT angiography of the brain. Report was called by Dr. Claros to Dr. Graves at 0921. Neck CTA 08/18/18 04:34 CONCLUSION: Negative CT angiography of the carotid arteries. Soft tissue density surrounding the thoracic arch as described above. Contrast- enhanced CT scan of the chest is recommended for further evaluation. Head MRI 08/18/18 07:18 CONCLUSION: 1. Negative for acute process 2. Prominent empty sella. 3. There is no restricted diffusion to suggest acute ischemic event. - Procedures TPA Assessment and Plan - Plan 58-year-old female with: CVA with aphasia and left-sided weakness status post IV TPA. Stable ct permissive HTN, f/u repeat HCT neuro recommends coumadin or eliquis in light of CMP, RF modification f/u lipid panel and A1c, Hypercoagulable panel pending. EEG neg. PT/OT and ST. Discussed with critical care medicine, will start Lovenox pending cardiology eval Cardiomyopathy. Needs BB and GERMAN when off permissive HTN. Cards consulted. CT shows pulmonary edema, patient is symptomatic tolerating room air. Lasix as needed ST density thor arch. CT showed masslike area of opacity in the right upper lung at the margin of pulmonary consolidation. Recommend follow-up noncontrast chest CT at the resolution of acute illness to exclude an underlying mass. Abnormal UA. Asymptomatic Ucx pending + amphetamine in UDS on Adderall DVT proph with SCD Discharge Planning: Stable to intermediate care
[2018-08-19] MEDS: Chlorhexidine Gluconate 2% 1 Pack (2 Cloths) TOPICAL SCH (06:32)
[2018-08-19 07:41] LABS: Chloride 111 meq/L (98-107); Potassium 3.9 meq/L (3.5-5.1); Sodium 141 meq/L (136-145)
[2018-08-19 07:44] LABS: Calcium 8.1 mg/dL (8.5-10.1)
[2018-08-19 07:45] LABS: Albumin 3.2 g/dL (3.4-5.0); Anion Gap 10 meq/L (5-15); Blood Urea Nitrogen 13 mg/dL (7-18); Carbon Dioxide 19.9 meq/L (21.0-32.0); Glucose,Random 121 mg/dL (74-106)
[2018-08-19 07:48] LABS: Alanine Aminotransferase 26 U/L (10-53); Aspartate Aminotransferase 21 U/L (15-37); Glomerular Filtration Rate 79 mL/min (>89)
[2018-08-19 07:49] LABS: Total Protein 6.4 g/dL (6.4-8.2)
[2018-08-19 07:50] LABS: Alkaline Phosphatase 72 U/L (45-117)
--- NOTE | 2018-08-19 08:13 | CT ---
EXAM DATE: 08/19/2018 8:06 AM EDT AGE/SEX: 58 years / Female INDICATIONS: Post TPA CLINICAL DATA: This is the patient's subsequent encounter. Patient reports that signs and symptoms h ave been present for 1 day and indicates a pain score of 0/10. MEDICAL/SURGICAL HISTORY: None. None. RADIATION DOSE: 63.67 CTDI (mGy) COMPARISON: [facility], MR HEAD W & W/O CONTRAST, 08/18/2018. . TECHNIQUE: CT of the head without contrast. Using automated exposure control and adjustment of the mA and/or kV according to patient size, radiation dose was kept as low as reasonably achievable to ob tain optimal diagnostic quality images. DICOM format image data is available electronically for revi ew and comparison. FINDINGS: Cerebrum: Small area of hypodensity in the medial left frontal lobe corresponding to area of restric thalia diffusion on recent MRI. The ventricles are normal for age. No evidence of midline shift, mass l esion, hemorrhage or acute infarction. No extraaxial fluid collections are seen. Posterior Fossa: The cerebellum and brainstem are intact. The 4th ventricle is midline. The cerebe llopontine angle is unremarkable. Extracranial: Mild partial opacification left sided ethmoid sinus. Skull: The calvaria is intact. No evidence of skull fracture. CONCLUSION: Small acute infarct in the medial left frontal lobe now seen correlating with finding on recent MRI. No evidence of acute intracranial hemorrhage. . Electronically signed by: Ankit Rock MD 08/19/2018 8:12 AM EDT
--- NOTE | 2018-08-19 08:23 | CT ---
EXAM DATE: 08/19/2018 8:08 AM EDT AGE/SEX: 58 years / Female INDICATIONS: Abnormality soft tissue mass seen on CTA neck CLINICAL DATA: This is the patient's initial encounter. Patient reports that signs and symptoms have been present for 1 day and indicates a pain score of 0/10. MEDICAL/SURGICAL HISTORY: None. None. RADIATION DOSE: 24.63 CTDI (mGy) COMPARISON: [facility], CTA NECK W CONTRAST W 3D, 08/18/2018. . TECHNIQUE: Multiple contiguous axial images were obtained through the chest during bolus infusion of 71ML ml Omnipaque 350 (iohexol) nonionic water-soluble contrast as a single exam dose. Images wer e obtained in suspended respiration using multiple row detector helical technique. Using automated e xposure control and adjustment of the mA and/or kV according to patient size, radiation dose was kept as low as reasonably achievable to obtain optimal diagnostic quality images. DICOM format image yony a is available electronically for review and comparison. FINDINGS: There is a small pericardial effusion seen in the recess anterior to the aortic arch and pulmonary ar lizabeth. Aortic contour is smooth and aorta is normal diameter. Small left pleural effusion and small to moderate-sized right pleural effusion. Multiple mildly prominent mediastinal lymph nodes. The larges t is in the pretracheal region on image #24 measuring 1.4 cm in short axis dimension. 1.1 cm right pa ratracheal lymph node is noted. 1 cm avascular lymph node. Axillary regions are within normal limits. Postsurgical findings in the left breast. Extensive groundglass opacity in the lungs bilaterally along with dependent atelectasis/mild consolid ation of the lower lobes. Patchy areas of consolidation are seen in the upper lobes bilaterally. Ther e is one area of opacity that has a somewhat masslike rounded configuration of the superior margin of the right upper lobe consolidation. This measures 1.9 cm in diameter. Calcified gallstone in the gallbladder measuring 1.5 cm. Upper abdomen otherwise within normal limits . Degenerative findings of the thoracic spine. Subacute to chronic appearing fracture of the upper ster nal body. No advanced bone bridging. Adjacent bony sclerosis. CONCLUSION: 1. Extensive bilateral pulmonary parenchymal opacity, predominantly groundglass opacity with areas o f consolidation. Most likely etiology is pulmonary edema. Bilateral pleural effusions right greater t martin left also noted. 2. Density seen adjacent to the aorta on recent CTA neck corresponds to small pericardial effusion. Aorta is within normal limits. 3. Masslike area of opacity in the right upper lung at the margin of pulmonary consolidation. Recomm end follow-up noncontrast chest CT at the resolution of acute illness to exclude an underlying mass. 4. Mildly prominent mediastinal lymph nodes likely reactive. 5. Subacute to chronic appearing nonunited fracture of the sternal body. 6. Cholelithiasis. Electronically signed by: Ankit Rock MD 08/19/2018 8:22 AM EDT
[2018-08-19] MEDS: Senna/Docusate Sodium 8.6/50 MG Tablet PO SCH ×2 (13:27→21:28)
[2018-08-19] MEDS: Sod Chloride 0.9% Inj 1,000 ML IV.CONT SCH (13:27)
[2018-08-19] MEDS: Enoxaparin Inj 100 MG/ML Syringe SQ SCH (15:17)
[2018-08-19 15:42] LABS: Cholesterol 177 mg/dL (120-200)
[2018-08-19 15:44] LABS: Chol/HDL Ratio 3.87 Ratio; HDL Cholesterol 45.7 mg/dL (40.0-60.0); LDL Cholesterol,Calculated 109 mg/dL (0-99); Triglycerides 111 mg/dL (42-150)
--- NOTE | 2018-08-19 17:45 | MB ---
cc: Constantino Harris MD DATE: 08/19/2018 REASON FOR CONSULTATION: Cardiomyopathy and CVA. HISTORY OF PRESENT ILLNESS: The patient is a very pleasant 58-year-old woman who denies any significant cardiac history. She says a couple years ago she had chest pain and a nonischemic stress test performed in [place], but has not had any cardiac problem since. She presents with acute inability to speak and focal weakness. She was given TPA with resolution of her symptoms. Her MRI has been normal. Part of her workup included an echocardiogram, which revealed an ejection fraction of less than 20%. Currently, the patient is feeling well, though she does endorse some shortness of breath on exertion lately. No current chest pain, shortness of breath, lightheadedness or dizziness. PAST MEDICAL HISTORY: ADD on Adderall. Occasional alcohol use. CURRENT MEDICATIONS: 1. Carvedilol 3.125 mg p.o. b.i.d. (just added). 2. Entresto 24/26 mg b.i.d. (just added). ALLERGIES: NO KNOWN DRUG ALLERGIES. PHYSICAL EXAMINATION: VITAL SIGNS: Temperature 99, pulse 116, respiratory rate 19, BP 114/83, saturating 93 on room air. GENERAL: Pleasant woman in no distress. NECK: No JVD. LUNGS: Clear to auscultation bilaterally. CARDIOVASCULAR: Slightly tachycardic with occasional ectopic beats heard. No significant murmurs. ABDOMEN: Benign. EXTREMITIES: No edema. LABORATORY DATA: Sodium 141, potassium 3.9, chloride 111, bicarbonate 19.9, BUN 10, creatinine 0.75, glucose 121. Troponin is negative. White count 5.2, hematocrit 41.3, platelets 153. Chest x-ray showed interstitial edema. EKG showed sinus rhythm with nonspecific intraventricular conduction delay and diffuse ST and T-wave changes that are nonspecific. Echocardiogram shows ejection fraction less than 20% with a moderately dilated left ventricle with mild mitral regurgitation. IMPRESSION: Cardiomyopathy. The patient has a dilated cardiomyopathy which I suspect to be nonischemic. She has had multiple stressful events recently, so Takotsubo cardiomyopathy is certainly a possibility. I have started Entresto and carvedilol and will have her undergo a nuclear stress test to get a sense on whether she has any ischemic etiology to her cardiomyopathy. Currently, she is fairly compensated from a systolic congestive heart failure standpoint, though I have discontinued her IV fluids. I will tolerate somewhat lower blood pressures in order to get her cardiomyopathy medications on board. Cerebrovascular accident. The patient's cerebrovascular accident is of uncertain etiology. I will have her undergo a transesophageal echocardiogram to look for intracardiac thrombus or shunting as well as implant a loop recorder for long-term arrhythmia/atrial fibrillation diagnosis and monitoring. She also agrees to the LifeVest prior to discharge, which I will arrange. She will be transferred to the main hospital for the above procedures. Thank you again for the opportunity to participate in this patient's care. MD RAS Living[place]/luis alberto , 04:16 PM , 04:25 PM
[2018-08-20] MEDS: Sod Chloride 0.9% Inj 1,000 ML IV.CONT SCH ×2 (01:38→18:05)
[2018-08-20] MEDS: Enoxaparin Inj 100 MG/ML Syringe SQ SCH ×2 (01:39→18:05)
[2018-08-20] MEDS: Chlorhexidine Gluconate 2% 1 Pack (2 Cloths) TOPICAL SCH (04:45)
[2018-08-20] MEDS: Senna/Docusate Sodium 8.6/50 MG Tablet PO SCH ×2 (08:22→21:17)
--- NOTE | 2018-08-20 08:38 | P.PN ---
Subjective Interval history: Follow-up CVA and cardiomyopathy. Patient has no complaints tolerating Lovenox , Entresto and Coreg. Agrees with plan of care Physical Exam Vital signs: Vital Signs 08/19/18 10:00 08/19/18 12:00 08/19/18 14:31 Temperature 99 F Pulse Rate 108 H 116 H Respiratory Rate 16 19 Blood Pressure 114/83 105/59 L Pulse Oximetry 92 L 93 L 93 L 08/19/18 16:00 08/19/18 17:41 08/19/18 18:00 Temperature 98.9 F 98.8 F 98 F Pulse Rate 107 H 123 H Respiratory Rate 18 20 Blood Pressure 111/83 117/83 104/77 Pulse Oximetry 95 98 94 L 08/19/18 18:57 08/19/18 20:00 08/20/18 00:00 Temperature 99.2 F 98.7 F Pulse Rate 115 H 105 H Respiratory Rate 20 20 Blood Pressure 116/81 108/65 Pulse Oximetry 94 L 94 L 93 L 08/20/18 04:00 08/20/18 07:49 Temperature 98.0 F Pulse Rate 96 H Respiratory Rate 20 Blood Pressure 108/66 Pulse Oximetry 96 95 Intake & Output 08/19/18 08/20/18 08/20/18 19:59 06:59 18:59 Intake Total Output Total Balance Weight Intake: IV NS Inj 1,000 ML @ 70 mls/hr IV. CONT .[id number] [facility] Rx#: [id number] Oral Output: Urine Other: # Voids Date of Last Bowel Movement # Bowel Movements Narrative: GENERAL: WD WN in [place] SKIN: Warm and dry. CARDIOVASCULAR: Regular rate and rhythm. RESPIRATORY: No accessory muscle use. Clear to auscultation. Breath sounds equal bilaterally. GASTROINTESTINAL: Abdomen soft, non-tender, nondistended. MUSCULOSKELETAL: Extremities without clubbing, cyanosis, or edema. No obvious deformities. NEUROLOGICAL: Awake and alert. No obvious cranial nerve deficits. Motor grossly within normal limits. Five out of 5 muscle strength in the arms and legs. Normal speech. Results - Labs CBC & Chem 7: 08/18/18 04:20 08/19/18 07:03 Laboratory Results - last 24 hr 08/19/18 07:03 Triglycerides 111 Cholesterol 177 LDL Cholesterol, Calc 109 H HDL Cholesterol 45.7 Cholesterol/HDL Ratio 3.87 - Imaging ITS Impressions Chest X-Ray 08/18/18 04:34 CONCLUSION: Findings of interstitial edema. Head CTA 08/18/18 04:34 CONCLUSION: Unremarkable CT angiography of the brain. Report was called by Dr. Claros to Dr. Graves at 0555. Neck CTA 08/18/18 04:34 CONCLUSION: Negative CT angiography of the carotid arteries. Soft tissue density surrounding the thoracic arch as described above. Contrast- enhanced CT scan of the chest is recommended for further evaluation. Head MRI 08/18/18 07:18 CONCLUSION: 1. Negative for acute process 2. Prominent empty sella. 3. There is no restricted diffusion to suggest acute ischemic event. Chest CT 08/19/18 00:00 CONCLUSION: 1. Extensive bilateral pulmonary parenchymal opacity, predominantly groundglass opacity with areas of consolidation. Most likely etiology is pulmonary edema. Bilateral pleural effusions right greater than left also noted. 2. Density seen adjacent to the aorta on recent CTA neck corresponds to small pericardial effusion. Aorta is within normal limits. 3. Masslike area of opacity in the right upper lung at the margin of pulmonary consolidation. Recommend follow-up noncontrast chest CT at the resolution of acute illness to exclude an underlying mass. 4. Mildly prominent mediastinal lymph nodes likely reactive. 5. Subacute to chronic appearing nonunited fracture of the sternal body. 6. Cholelithiasis. Head CT 08/19/18 04:55 CONCLUSION: Small acute infarct in the medial left frontal lobe now seen correlating with finding on recent MRI. No evidence of acute intracranial hemorrhage. . - Procedures TPA Assessment and Plan - Plan 58-year-old female with: CVA with aphasia and left-sided weakness status post IV TPA. Stable neurologically intact repeat head CT without bleed started on Lovenox while undergoing cardiac workup. Neurology recommends Coumadin or Eliquis(patient preference) in light of CMP. RF modification f/u lA1c. LDL 109 agrees to be on statin. Hypercoagulable panel pending. EEG neg. PT/OT and ST. for KELI and loop recorder patient will be transferred to [facility] Cardiomyopathy. Stable cardiology started Entresto and Coreg. For Lexiscan and consult case management for LifeVest. CT shows pulmonary edema, patient is symptomatic tolerating room air. Lasix as needed ST density thor arch. CT showed masslike area of opacity in the right upper lung at the margin of pulmonary consolidation. Recommend follow-up noncontrast chest CT at the resolution of acute illness to exclude an underlying mass. Abnormal UA. Asymptomatic Ucx pending + amphetamine in UDS on Adderall DVT proph with SCD Discharge Planning: Stable to intermediate care
--- NOTE | 2018-08-20 11:21 | P.PN ---
Subjective Interval history: PT doing well, no sx. Physical Exam Vital signs: Vital Signs 08/19/18 14:31 08/19/18 16:00 08/19/18 17:41 Temperature 98.9 F 98.8 F Pulse Rate 107 H 123 H Respiratory Rate 18 20 Blood Pressure 111/83 117/83 Pulse Oximetry 93 L 95 98 08/19/18 18:00 08/19/18 18:57 08/19/18 20:00 Temperature 98 F 99.2 F Pulse Rate 115 H Respiratory Rate 20 Blood Pressure 104/77 116/81 Pulse Oximetry 94 L 94 L 94 L 08/20/18 00:00 08/20/18 04:00 08/20/18 07:49 Temperature 98.7 F 98.0 F Pulse Rate 105 H 96 H Respiratory Rate 20 20 Blood Pressure 108/65 108/66 Pulse Oximetry 93 L 96 95 08/20/18 08:00 Temperature 96.4 F L Pulse Rate 92 H Respiratory Rate 20 Blood Pressure 114/64 Pulse Oximetry Intake & Output 08/19/18 08/20/18 08/20/18 19:59 06:59 18:59 Intake Total Output Total Balance Weight Intake: IV NS Inj 1,000 ML @ 70 mls/hr IV. CONT .[id number] [facility] Rx#: [id number] Oral Output: Urine Other: # Voids Date of Last Bowel Movement # Bowel Movements - Constitutional no acute distress - Routine HEENT Exam Head: Present: normocephalic Eye: Present: EOMI ENT: Present: mucous membranes moist - Routine Neck Exam Present: supple. Absent: JVD - Routine Respiratory Exam Present: CTA bilaterally. Absent: accessory muscle use - Routine Cardiovascular Exam Present: RRR. Absent: murmur - Routine Abdominal Exam Present: soft - Routine Extremities Exam Absent: edema Results - Labs CBC & Chem 7: 08/18/18 04:20 08/19/18 07:03 Laboratory Results - last 24 hr 08/19/18 07:03 Triglycerides 111 Cholesterol 177 LDL Cholesterol, Calc 109 H HDL Cholesterol 45.7 Cholesterol/HDL Ratio 3.87 - Procedures TPA Assessment and Plan - Assessment (1) Acute ischemic stroke Code(s): I63.9 - Cerebral infarction, unspecified Status: Acute Plan: for loop/jannette, holding lovenox tonight for procedure (2) Cardiomyopathy Code(s): I42.9 - Cardiomyopathy, unspecified Status: Acute Plan: nuclear pending; on entresto/coreg; life-vest ordered - Plan Plan for loop/JANNETTE tomorrow
[2018-08-20 13:34] LABS: Hemoglobin A1c 5.4 % (4.3-6.0)
[2018-08-21] MEDS: Chlorhexidine Gluconate 2% 1 Pack (2 Cloths) TOPICAL SCH (04:30)
[2018-08-21] MEDS: Sod Chloride 0.9% Inj 1,000 ML IV.CONT SCH ×2 (04:30→17:51)
--- NOTE | 2018-08-21 07:59 | P.PNNEU ---
Subjective Subjective Comments: sr Active Medications: Active Medications Acetaminophen (Tylenol) 650 mg PO Q6H PRN PRN Reason: PAIN 1-10 AND/OR FEVER >101F Al Hydroxide/Mg Hydroxide (Milk Of Magnesia Liq) 30 ml PO Q12H PRN PRN Reason: Mild Constipation Albuterol (Duoneb Neb (Prn)) 1 ampul NEB Q2HR NEB PRN PRN Reason: WHEEZING Atorvastatin Calcium (Lipitor) 20 mg PO HS [facility] Last Admin: 08/20/18 21:17 Dose: 20 mg Bisacodyl (Dulcolax Supp) 10 mg RECTAL DAILY PRN PRN Reason: SEVERE CONSITIPATION Carvedilol (Coreg) 3.125 mg PO BID [facility] Last Admin: 08/20/18 21:18 Dose: 3.125 mg Chlorhexidine Gluconate (Chlorhexidine 2% Cloth) 3 pack TOPICAL DAILY@0400 PRN PRN Reason: Extra cloth needed Stop: 08/24/18 03:59 Chlorhexidine Gluconate (Chlorhexidine 2% Cloth) 3 pack TOPICAL DAILY@0400 [facility] Stop: 08/24/18 03:59 Last Admin: 08/21/18 04:30 Dose: 3 pack Enoxaparin Sodium (Lovenox Inj) 100 mg SQ DAILY@1100,2300 [facility] Last Admin: 08/20/18 18:05 Dose: Not Given Sodium Chloride (Ns Inj) 1,000 mls @ 70 mls/hr IV.CONT .[id number] [facility] Last Admin: 08/21/18 04:30 Dose: 70 mls/hr Lactulose (Lactulose Liq) 30 ml PO DAILY PRN PRN Reason: SEVERE CONSITIPATION Ondansetron HCl (Zofran Inj) 4 mg IV.PUSH Q6H PRN PRN Reason: NAUSEA OR VOMITING Sacubitril/Valsartan (Entresto 24 Mg/26 Mg Tablet) 1 tab PO BID [facility] Last Admin: 08/20/18 21:40 Dose: 1 tab Senna/Docusate Sodium (Sheree-Colace) 1 tab PO BID [facility] Last Admin: 08/20/18 21:17 Dose: 1 tab Sennosides (Senokot) 17.2 mg PO Q12H PRN PRN Reason: Moderate Constipation Sodium Chloride (Ns Flush) 2 ml IV.FLUSH BID [facility] Last Admin: 08/20/18 21:18 Dose: 2 ml Sodium Chloride (Ns Flush) 2 ml IV.FLUSH PRN PRN PRN Reason: FLUSH AFTER USING IV ACCESS Terbutaline Sulfate (Brethine Inj) 1 mg SQ UNSCH PRN PRN Reason: For Extravasation Allergies/Adverse Reactions: Allergies Allergy/AdvReac Type Severity Reaction Status Date / Time No Known Allergies Allergy Verified 08/18/18 04:33 Physical Exam Vital signs: Vital Signs 08/20/18 08:00 08/20/18 10:00 08/20/18 11:21 Temperature 96.4 F L Pulse Rate 92 H 93 H Respiratory Rate 20 Blood Pressure 114/64 102/64 Pulse Oximetry 08/20/18 12:00 08/20/18 12:54 08/20/18 16:32 Temperature 98.6 F Pulse Rate 116 H 105 H Respiratory Rate 19 33 H Blood Pressure 102/64 110/60 Pulse Oximetry 97 97 08/20/18 16:56 08/20/18 20:00 08/21/18 00:00 Temperature 98.8 F 98.6 F 98.0 F Pulse Rate 96 H 95 H 89 Respiratory Rate 22 24 18 Blood Pressure 110/60 96/69 L 104/59 L Pulse Oximetry 98 08/21/18 04:00 Temperature 98.4 F Pulse Rate 80 Respiratory Rate 19 Blood Pressure 110/71 Pulse Oximetry Intake & Output 08/20/18 08/21/18 08/21/18 18:59 06:59 18:59 Weight 104.2 kg Other: Date of Last Bowel Movement 08/18/18 08/19/18 Narrative: no new spell vf face sym 5/5 nl speech Objective Laboratory Results - last 24 hr 08/19/18 07:03 Hemoglobin A1c 5.4 Microbiology 08/18/18 22:03 Urine Culture - Preliminary Clean Catch Urine Immature growth - reincubate Review/Management - Review/Management Plan: imp mri shows left frontal infarct acutely ef 20% ctax2 neg labs ok [place] nl i thinks she should be anticoagulated with low ef and cva ct chest for ? mass needs fu cards to be consulted labs neg hyper pend coumadin or eliquis ok by me if fu ct no blood sp tpa ----- 08/21/18 i dw cards after loop i would start sq heparin or lovenox and coumadin and get inr 2-2.5 small likley embolic cva loop and jannette soon and stress test
[2018-08-21] MEDS: Senna/Docusate Sodium 8.6/50 MG Tablet PO SCH ×2 (08:52→22:01)
--- NOTE | 2018-08-21 09:03 | P.PN ---
Subjective Interval history: No new complaints, pt did well KELI/loop (no source of intracardiac emboli or shunt seen) Physical Exam Vital signs: Vital Signs 08/20/18 10:00 08/20/18 11:21 08/20/18 12:00 Temperature 98.6 F Pulse Rate 93 H 116 H Respiratory Rate 19 Blood Pressure 102/64 102/64 Pulse Oximetry 97 08/20/18 12:54 08/20/18 16:32 08/20/18 16:56 Temperature 98.8 F Pulse Rate 105 H 96 H Respiratory Rate 33 H 22 Blood Pressure 110/60 110/60 Pulse Oximetry 97 08/20/18 20:00 08/21/18 00:00 08/21/18 04:00 Temperature 98.6 F 98.0 F 98.4 F Pulse Rate 95 H 89 80 Respiratory Rate 24 18 19 Blood Pressure 96/69 L 104/59 L 110/71 Pulse Oximetry 98 Intake & Output 08/20/18 08/21/18 08/21/18 18:59 06:59 18:59 Weight 104.2 kg Other: Date of Last Bowel Movement 08/18/18 08/19/18 - Constitutional no acute distress - Routine HEENT Exam Head: Present: normocephalic Eye: Present: EOMI ENT: Present: mucous membranes moist - Routine Neck Exam Present: supple. Absent: JVD - Routine Cardiovascular Exam Present: RRR - Routine Abdominal Exam Present: soft - Routine Extremities Exam Absent: edema Results - Labs CBC & Chem 7: 08/18/18 04:20 08/19/18 07:03 Laboratory Results - last 24 hr 08/19/18 07:03 Hemoglobin A1c 5.4 Microbiology 08/18/18 22:03 Clean Catch Urine Urine Culture - Preliminary Immature growth - reincubate - Procedures TPA Assessment and Plan - Assessment (1) Acute ischemic stroke Code(s): I63.9 - Cerebral infarction, unspecified Status: Acute Plan: no source of intracardiac emboli or shunt seen; discussed anticoagulation w/ Dr. Graves, warfarin seems reasonable for at least the short term, loop now in place (2) Cardiomyopathy Code(s): I42.9 - Cardiomyopathy, unspecified Status: Acute Plan: nuclear pending; on entresto/coreg; life-vest ordered; ? noncompaction cardiomyopathy; KELI confirms EF near 20% - Plan If nuclear non-ischemic; could potentially be discharged once warfarin initiated , she will f/u with me in the office.
--- NOTE | 2018-08-21 09:24 | ECHRPT ---
Indication: cva/tia CONCLUSIONS Severely reduced LVEF, 20% No intracardiac thrombus No PFO/ASD BP: / HR: Rhythm: Technical Quality:Good Medications Complications There were no complications prior to, during or in recovery from the transesophag eal echocardiogram.. Proc. Components FINDINGS LEFT VENTRICLE The left ventricular systolic function is severely reduced with an estimated ejection fraction less than 20%. There is global left ventricular dysfunction. Mildly dilated left ventricle. LEFT ATRIUM The left atrial size is normal. RIGHT ATRIUM The right atrial size is normal. ATRIAL APPENDAGES There is no spontaneous echo contrast seen in the left atrial appendage. The velocities in the left atrial appendage are reduced. ATRIAL SEPTUM No atrial level shunt is observed with agitated saline contrast administration. MITRAL VALVE Trace mitral valve regurgitation. AORTIC VALVE Trileaflet aortic valve. No aortic valve stenosis or regurgitation. TRICUSPID VALVE There is trace tricuspid valve regurgitation. VESSELS The pulmonary valve is not well visualized. PERICADIUM Trivial pericardial effusion Constantino Harris MD (Electronically Signed) Final Date:21 August 2018 09:23
--- NOTE | 2018-08-21 10:41 | P.PNIM ---
Subjective Interval history: Patient status post loop recorder placement and KELI today. Stress test pending. No new complaints. Physical Exam Vital signs: Vital Signs 08/20/18 11:21 08/20/18 12:00 08/20/18 12:54 Temperature 98.6 F Pulse Rate 116 H Respiratory Rate 19 Blood Pressure 102/64 102/64 Pulse Oximetry 97 97 08/20/18 16:32 08/20/18 16:56 08/20/18 20:00 Temperature 98.8 F 98.6 F Pulse Rate 105 H 96 H 95 H Respiratory Rate 33 H 22 24 Blood Pressure 110/60 110/60 96/69 L Pulse Oximetry 98 08/21/18 00:00 08/21/18 04:00 08/21/18 08:00 Temperature 98.0 F 98.4 F Pulse Rate 89 80 82 Respiratory Rate 18 19 Blood Pressure 104/59 L 110/71 Pulse Oximetry 98 08/21/18 09:51 Temperature Pulse Rate Respiratory Rate Blood Pressure Pulse Oximetry 98 Intake & Output 08/20/18 08/21/18 08/21/18 18:59 06:59 18:59 Weight 104.2 kg Other: Date of Last Bowel Movement 08/18/18 08/19/18 Narrative: GENERAL: NAD, A&Ox3 HEAD: Normocephalic. NECK: Supple, trachea midline. No lymphadenopathy. EYES: No scleral icterus. No injection or drainage. CARDIOVASCULAR: Regular rate and rhythm without murmurs, gallops, or rubs. RESPIRATORY: Breath sounds equal bilaterally. No accessory muscle use. GASTROINTESTINAL: Abdomen soft, non-tender, nondistended. MUSCULOSKELETAL: No cyanosis, or edema. SKIN: Warm and dry. NEURO: No focal neurological deficits. Results - Labs CBC & Chem 7: 08/18/18 04:20 08/19/18 07:03 Laboratory Results - last 24 hr 08/19/18 07:03 Hemoglobin A1c 5.4 Microbiology 08/18/18 22:03 Clean Catch Urine Urine Culture - Final Lactobacillus species - Procedures TPA Assessment and Plan - Plan 58-year-old female admitted secondary to acute CVA, status post TPA Acute CVA Aphasia Left-sided weakness Status post TPA Doing well thus far. Patient status post KELI and loop recorder placement today Anticoagulation therapy will be started as directed Initiate Coumadin Lovenox Stress test pending for today Cardiomyopathy Continue anastrozole Continue Coreg LifeVest pending DVT prophylaxis SCDs Lovenox/Coumadin
[2018-08-21] MEDS ORDERED: Heparin - SQ 10,000 UNITS/ML Vial SQ ONE (11:30)
[2018-08-21] MEDS ORDERED: Regadenoson Inj 0.4 MG/5 ML Syringe IV.PUSH ONE (12:18)
--- NOTE | 2018-08-21 13:36 | NM ---
EXAM DATE: 08/21/2018 1:33 PM EST AGE/SEX: 58 years / Female INDICATIONS:Angina. . Cardiomyopathy. CLINICAL DATA: This is the patient's initial encounter. Patient reports that signs and symptoms have been present for 1 day and indicates a pain score of 0/10. MEDICAL/SURGICAL HISTORY: None. None. COMPARISON: No prior exams available for comparison. DOSE: 10.1 mCi Tc 99m Myoview at rest 26.1 mCi [id number] at stress 0.4 mg Lexiscan STRESS SYMPTOMS: Chest pressure. EJECTION FRACTION: 16 % TECHNIQUE: The patient underwent pharmacologic stress with infusion of prescribed dose. Continuous ECG tracing was monitored during stress. Gated SPECT imaging was performed after stress and conventi onal SPECT imaging was performed at rest. The examination was performed on a SPECT/CT scanner, both attenuation and non-corrected datasets were reviewed. FINDINGS: Distribution: The maximum perfused segment at stress is in the anterolateral wall. Perfusion Study: No mismatched defects. There are some matched defects along the apex. Gated Study: Global hypokinesia. The ejection fraction is calculated at 16%. RISK CATEGORY: High (>3% Annual Morality Rate) CONCLUSION: 1. No reversible perfusion defects. 2. Nonischemic cardiomyopathy with ejection fraction 60%. Electronically signed by: Martín Mejia MD 08/21/2018 1:35 PM EST
--- NOTE | 2018-08-21 15:54 | HM ---
Date Performed: 08/19/2018 Time Performed: 09:36:00 HOOKUP DATE: 08/19/18 09:36:00 AM Sat ANALYSIS START TIME: 08/19/2018 9:41:00 AM ANALYSIS END TIME: 08/20/2018 9:44:59 AM PATIENT AGE: 58 PATIENT HEIGHT PATIENT WEIGHT: 229 DRUG LIST PATIENT DIAGNOSIS: CVA TEST NARRATIVE: The patient's average heart rate was 105 BPM. Heart rates greater than 120 BPM were noted 12% of the time. No episodes of bradycardia were noted. No pauses exceeding 2.0 s econds were noted. 60365 ventricular ectopics, which represented 7% of the total beat count, were noted. The highest ventricular ectopic frequency occurred from 07:00 PM to 08:00 PM Sat. During th is time 698 VE(s) occurred. [place] [address] isolated beat(s), as 325 cou plet(s) and as 17 run(s). Some of the ventricular beats occurred in bigeminal cycles. 40 suprave ntricular ectopics, which represented < 1% of the total beat count, were noted. The highest supraven tricular ectopic frequency occurred from 07:00 PM to 08:00 PM Sat. During this time 29 SVE(s) occurr ed. Multiple episodes of ST depression (defined as -1.0 mm or more) were noted in channel 1. Th e maximum depression of -1.4 mm occurred at 05:42:08 PM Sat. No episodes of ST depression (defined a s -1.0 mm or more) were noted in channel 2. No episodes of ST depression (defined as -1.0 mm or more ) were noted in channel 3. TEST INTERPRETATION: No symptoms are documented and no significant pauses are present. The under lying rhythm is Sinus rhythm . Average rate is 105 bpm with range of 70 to 185 bpm.Occasional to frequent PVCs are seen with possi ble ventricular runs of 3 to 4 beats.Occasional premature atrial contractions are seen. A rare, sligh tly irregular run of what appears to be atrial tachycardia with the baseline bundle branch block is s een. Signed by : Elijah Blank
[2018-08-21] MEDS: Enoxaparin Inj 100 MG/ML Syringe SQ SCH (22:02)
[2018-08-22] MEDS: Chlorhexidine Gluconate 2% 1 Pack (2 Cloths) TOPICAL SCH (05:32)
[2018-08-22 06:08] LABS: Baso % (Auto) 0.5 % (0.0-2.0); Eos # (Auto) 0.1 th/mm3 (0.0-0.4); Eos % (Auto) 2.5 % (0.0-4.0); Hematocrit 39.2 % (35.0-46.0); Hemoglobin 13.1 gm/dL (11.6-15.3); Lymph # (Auto) 0.8 th/mm3 (1.0-4.8); Mean Corpuscular HGB Conc 33.4 % (32.0-36.0); Mean Corpuscular Volume 92.9 fL (80.0-100.0); Mono # (Auto) 0.3 th/mm3 (0.0-0.9); Neut # (Auto) 2.2 th/mm3 (1.8-7.7); Platelet Count 115 th/mm3 (150-450); Red Blood Count 4.21 mil/mm3 (4.00-5.30); Red Cell Distribution Width 14.6 % (11.6-17.2); White Blood Count 3.4 th/mm3 (4.0-11.0)
[2018-08-22 06:29] LABS: Albumin 3.2 g/dL (3.4-5.0); Anion Gap 7 meq/L (5-15); Aspartate Aminotransferase 26 U/L (15-37); Blood Urea Nitrogen 12 mg/dL (7-18); Calcium 8.6 mg/dL (8.5-10.1); Carbon Dioxide 24.8 meq/L (21.0-32.0); Chloride 111 meq/L (98-107); Glomerular Filtration Rate 79 mL/min (>89); Glucose,Random 108 mg/dL (74-106); Potassium 4.1 meq/L (3.5-5.1); Sodium 143 meq/L (136-145)
[2018-08-22 06:34] LABS: Alanine Aminotransferase 39 U/L (10-53); Alkaline Phosphatase 84 U/L (45-117); Total Protein 6.5 g/dL (6.4-8.2)
[2018-08-22] MEDS: Sod Chloride 0.9% Inj 1,000 ML IV.CONT SCH ×2 (08:38→23:27)
[2018-08-22] MEDS: Enoxaparin Inj 100 MG/ML Syringe SQ SCH ×2 (09:22→20:22)
[2018-08-22] MEDS: Senna/Docusate Sodium 8.6/50 MG Tablet PO SCH ×2 (09:22→20:24)
--- NOTE | 2018-08-22 11:33 | P.PNIM ---
Subjective Interval history: No new complaints today. Stress test shows more evidence of cardiomyopathy with estimated ejection fraction of 16%. No reversible perfusion defects. Patient has no complaints today. Physical Exam Vital signs: Vital Signs 08/21/18 13:32 08/21/18 13:48 08/21/18 15:00 Temperature 98.6 F Pulse Rate 100 H 100 H Respiratory Rate 27 H 24 Blood Pressure 104/65 100/56 L 100/56 L Pulse Oximetry 100 97 08/21/18 15:27 08/21/18 16:29 08/21/18 17:00 Temperature 98.3 F Pulse Rate 95 H 89 90 Respiratory Rate 22 18 Blood Pressure 106/66 Pulse Oximetry 98 08/21/18 18:00 08/21/18 19:00 08/21/18 20:00 Temperature Pulse Rate 86 99 H 94 H Respiratory Rate 25 H 32 H Blood Pressure Pulse Oximetry 08/21/18 21:00 08/21/18 22:00 08/21/18 22:09 Temperature 97.7 F Pulse Rate 92 H 100 H 95 H Respiratory Rate 20 3 L 31 H Blood Pressure 110/60 Pulse Oximetry 99 08/22/18 00:05 08/22/18 00:07 08/22/18 05:27 Temperature 98.7 F Pulse Rate 101 H 93 H 73 Respiratory Rate 22 13 Blood Pressure 111/67 Pulse Oximetry 98 08/22/18 08:00 08/22/18 11:00 Temperature 98.3 F Pulse Rate 88 92 H Respiratory Rate 23 Blood Pressure 137/60 Pulse Oximetry 97 Intake & Output 08/21/18 08/22/18 08/22/18 18:59 06:59 18:59 Intake Total 1420 / 1420 240 / 240 Balance 1420 / 1420 240 / 240 Weight 104.21 kg Intake: IV 1000 / 1000 NS Inj 1,000 ML @ 70 mls/hr IV. 1000 / 1000 CONT .[id number] ISABELA Rx#: [id number] Oral 420 / 420 240 / 240 Other: # Voids 3 2 Date of Last Bowel Movement 08/20/18 08/20/18 08/20/18 # Bowel Movements 0 0 Narrative: GENERAL: NAD, A&Ox3 HEAD: Normocephalic. NECK: Supple, trachea midline. No lymphadenopathy. EYES: No scleral icterus. No injection or drainage. CARDIOVASCULAR: Regular rate and rhythm without murmurs, gallops, or rubs. RESPIRATORY: Breath sounds equal bilaterally. No accessory muscle use. GASTROINTESTINAL: Abdomen soft, non-tender, nondistended. MUSCULOSKELETAL: No cyanosis, or edema. SKIN: Warm and dry. NEURO: No focal neurological deficits. Results - Labs CBC & Chem 7: 08/22/18 05:53 08/22/18 05:53 Laboratory Results - last 24 hr 08/19/18 08/22/18 08/22/18 07:03 05:53 05:53 WBC 3.4 L RBC 4.21 Hgb 13.1 Hct 39.2 MCV 92.9 MCH 31.0 MCHC 33.4 RDW 14.6 Plt Count 115 L MPV 10.0 Neut % (Auto) 64.0 Lymph % (Auto) 25.0 [place] % (Auto) 8.0 Eos % (Auto) 2.5 Baso % (Auto) 0.5 Neut # (Auto) 2.2 Lymph # (Auto) 0.8 L [place] # (Auto) 0.3 Eos # (Auto) 0.1 Baso # (Auto) 0.0 WBC Differential . Differential Comment Auto diff final Sodium 143 Potassium 4.1 Chloride 111 H Carbon Dioxide 24.8 Anion Gap 7 BUN 12 Creatinine 0.75 Estimated GFR 79 L Random Glucose 108 H Calcium 8.6 Total Bilirubin 0.5 AST 26 ALT 39 Alkaline Phosphatase 84 Total Protein 6.5 Albumin 3.2 L YANCI Screen Neg Microbiology 08/18/18 22:03 Clean Catch Urine Urine Culture - Final Lactobacillus species - Imaging Impressions Myocardial Perfusion Scan Nuc Med 08/21/18 00:00 CONCLUSION: 1. No reversible perfusion defects. 2. Nonischemic cardiomyopathy with ejection fraction 60%. - Procedures TPA Assessment and Plan - Plan 58-year-old female admitted secondary to acute CVA, status post TPA Continue Coumadin. Follow INR, next INR tomorrow morning. Follow on telemetry. Acute CVA Aphasia Left-sided weakness Status post TPA Doing well thus far. Patient status post KELI and loop recorder placement today Anticoagulation therapy will be started as directed Initiate Coumadin Lovenox Stress test pending for today Cardiomyopathy Continue anastrozole Continue Coreg LifeVest pending DVT prophylaxis SCDs Lovenox/Coumadin
--- NOTE | 2018-08-22 12:53 | P.PN ---
Subjective Interval history: Doing great, no complaints. Physical Exam Vital signs: Vital Signs 08/21/18 13:32 08/21/18 13:48 08/21/18 15:00 Temperature 98.6 F Pulse Rate 100 H 100 H Respiratory Rate 27 H 24 Blood Pressure 104/65 100/56 L 100/56 L Pulse Oximetry 100 97 08/21/18 15:27 08/21/18 16:29 08/21/18 17:00 Temperature 98.3 F Pulse Rate 95 H 89 90 Respiratory Rate 22 18 Blood Pressure 106/66 Pulse Oximetry 98 08/21/18 18:00 08/21/18 19:00 08/21/18 20:00 Temperature Pulse Rate 86 99 H 94 H Respiratory Rate 25 H 32 H Blood Pressure Pulse Oximetry 08/21/18 21:00 08/21/18 22:00 08/21/18 22:09 Temperature 97.7 F Pulse Rate 92 H 100 H 95 H Respiratory Rate 20 3 L 31 H Blood Pressure 110/60 Pulse Oximetry 99 08/22/18 00:05 08/22/18 00:07 08/22/18 05:27 Temperature 98.7 F Pulse Rate 101 H 93 H 73 Respiratory Rate 22 13 Blood Pressure 111/67 Pulse Oximetry 98 08/22/18 08:00 08/22/18 11:00 Temperature 98.3 F Pulse Rate 88 92 H Respiratory Rate 23 Blood Pressure 137/60 Pulse Oximetry 97 Intake & Output 08/21/18 08/22/18 08/22/18 18:59 06:59 18:59 Intake Total 1420 / 1420 240 / 240 Balance 1420 / 1420 240 / 240 Weight 104.21 kg Intake: IV 1000 / 1000 NS Inj 1,000 ML @ 70 mls/hr IV. 1000 / 1000 CONT .[id number] [facility] Rx#: [id number] Oral 420 / 420 240 / 240 Other: # Voids 3 2 Date of Last Bowel Movement 08/20/18 08/20/18 08/20/18 # Bowel Movements 0 0 - Constitutional no acute distress - Routine HEENT Exam Head: Present: normocephalic Eye: Present: EOMI ENT: Present: mucous membranes moist - Routine Neck Exam Present: supple. Absent: JVD - Routine Respiratory Exam Present: CTA bilaterally. Absent: accessory muscle use - Routine Cardiovascular Exam Present: RRR, S1, S2. Absent: murmur - Routine Abdominal Exam Present: soft - Routine Extremities Exam Absent: edema Results - Labs CBC & Chem 7: 08/22/18 05:53 08/22/18 05:53 Laboratory Results - last 24 hr 08/19/18 08/22/18 08/22/18 07:03 05:53 05:53 WBC 3.4 L RBC 4.21 Hgb 13.1 Hct 39.2 MCV 92.9 MCH 31.0 MCHC 33.4 RDW 14.6 Plt Count 115 L MPV 10.0 Neut % (Auto) 64.0 Lymph % (Auto) 25.0 [place] % (Auto) 8.0 Eos % (Auto) 2.5 Baso % (Auto) 0.5 Neut # (Auto) 2.2 Lymph # (Auto) 0.8 L [place] # (Auto) 0.3 Eos # (Auto) 0.1 Baso # (Auto) 0.0 WBC Differential . Differential Comment Auto diff final Sodium 143 Potassium 4.1 Chloride 111 H Carbon Dioxide 24.8 Anion Gap 7 BUN 12 Creatinine 0.75 Estimated GFR 79 L Random Glucose 108 H Calcium 8.6 Total Bilirubin 0.5 AST 26 ALT 39 Alkaline Phosphatase 84 Total Protein 6.5 Albumin 3.2 L YANCI Screen Neg Microbiology 08/18/18 22:03 Clean Catch Urine Urine Culture - Final Lactobacillus species - Imaging Impressions Myocardial Perfusion Scan Nuc Med 08/21/18 00:00 CONCLUSION: 1. No reversible perfusion defects. 2. Nonischemic cardiomyopathy with ejection fraction 60%. - Procedures TPA Assessment and Plan - Assessment (1) Acute ischemic stroke Code(s): I63.9 - Cerebral infarction, unspecified Status: Acute Plan: no source of intracardiac emboli or shunt seen; discussed anticoagulation w/ Dr. Graves, warfarin seems reasonable for at least the short term, loop now in place (2) Cardiomyopathy Code(s): I42.9 - Cardiomyopathy, unspecified Status: Acute Plan: nuclear pending; on entresto/coreg; life-vest ordered; ? noncompaction cardiomyopathy; KELI confirms EF near 20% would like life-vest placed prior to d/c - Plan If nuclear non-ischemic; could potentially be discharged once warfarin initiated , she will f/u with me in the office. - Attending Attestation Ok to d/c home from my standpoint once life-vest in place; she should see me in 1-2 weeks.
[2018-08-23] MEDS: Chlorhexidine Gluconate 2% 1 Pack (2 Cloths) TOPICAL SCH (04:52)
[2018-08-23 06:49] LABS: INR 1.1 Ratio; Prothrombin Time 10.7 sec (9.8-11.6)
--- NOTE | 2018-08-23 10:03 | P.PNIM ---
Subjective Interval history: INR has shifted to 1.1, this is lower than anticipated. No new complaints from the patient. Patient's insurance will not cover LifeVest, [place] [employer], she does not have financial means to afford LifeVest. Physical Exam Vital signs: Vital Signs 08/22/18 11:00 08/22/18 12:00 08/22/18 16:00 Temperature 98.5 F 98.6 F Pulse Rate 92 H 82 88 Respiratory Rate 12 16 Blood Pressure 101/55 L 101/68 Pulse Oximetry 98 96 08/22/18 17:00 08/22/18 19:00 08/22/18 20:00 Temperature 99.0 F Pulse Rate 83 84 93 H Respiratory Rate 18 Blood Pressure 109/56 L Pulse Oximetry 99 08/22/18 20:06 08/22/18 20:20 08/22/18 21:00 Temperature 99.0 F Pulse Rate 93 H 89 Respiratory Rate 18 17 Blood Pressure 109/56 L Pulse Oximetry 99 97 08/22/18 21:21 08/22/18 22:00 08/22/18 23:00 Temperature Pulse Rate 84 87 88 Respiratory Rate 16 18 22 Blood Pressure Pulse Oximetry 08/22/18 23:31 08/23/18 00:00 08/23/18 01:00 Temperature 98.6 F Pulse Rate 85 86 83 Respiratory Rate 21 18 23 Blood Pressure 107/75 Pulse Oximetry 97 08/23/18 01:31 08/23/18 02:00 08/23/18 03:00 Temperature Pulse Rate 83 78 68 Respiratory Rate 23 22 24 Blood Pressure Pulse Oximetry 08/23/18 04:00 08/23/18 05:00 08/23/18 06:00 Temperature 98.3 F Pulse Rate 83 72 78 Respiratory Rate 20 15 18 Blood Pressure 99/59 L Pulse Oximetry 99 08/23/18 08:17 Temperature Pulse Rate Respiratory Rate Blood Pressure Pulse Oximetry 98 Intake & Output 08/22/18 08/23/18 08/23/18 18:59 06:59 18:59 Intake Total 660 / 660 400 / 400 Balance 660 / 660 400 / 400 Weight 94.8 kg Intake: Oral 660 / 660 400 / 400 Other: # Voids 4 4 Date of Last Bowel Movement 08/20/18 08/23/18 # Bowel Movements 0 1 Narrative: GENERAL: NAD, A&Ox3 HEAD: Normocephalic. NECK: Supple, trachea midline. No lymphadenopathy. EYES: No scleral icterus. No injection or drainage. CARDIOVASCULAR: Regular rate and rhythm without murmurs, gallops, or rubs. RESPIRATORY: Breath sounds equal bilaterally. No accessory muscle use. GASTROINTESTINAL: Abdomen soft, non-tender, nondistended. MUSCULOSKELETAL: No cyanosis, or edema. SKIN: Warm and dry. NEURO: No focal neurological deficits. Results - Labs CBC & Chem 7: 08/22/18 05:53 08/22/18 05:53 Laboratory Results - last 24 hr 08/23/18 05:22 PT 10.7 INR 1.1 - Procedures TPA Assessment and Plan - Plan 58-year-old female admitted secondary to acute CVA, status post TPA Recheck TSH, T3, T4. Continue Coumadin. Follow INR, next INR tomorrow morning. Follow on telemetry. Acute CVA Aphasia Left-sided weakness Status post TPA Doing well thus far. Patient status post KELI and loop recorder placement today Anticoagulation therapy will be started as directed Initiate Coumadin Lovenox Stress test pending for today Cardiomyopathy Continue anastrozole Continue Coreg LifeVest pending DVT prophylaxis SCDs Lovenox/Coumadin
[2018-08-23] MEDS: Enoxaparin Inj 100 MG/ML Syringe SQ SCH ×2 (10:20→20:12)
[2018-08-23] MEDS: Senna/Docusate Sodium 8.6/50 MG Tablet PO SCH ×2 (10:21→20:13)
--- NOTE | 2018-08-23 10:26 | P.PNNEU ---
Subjective Subjective Comments: no new spells sr Active Medications: Active Medications Acetaminophen (Tylenol) 650 mg PO Q6H PRN PRN Reason: PAIN 1-10 AND/OR FEVER >101F Al Hydroxide/Mg Hydroxide (Milk Of Magnesia Liq) 30 ml PO Q12H PRN PRN Reason: Mild Constipation Albuterol (Duoneb Neb (Prn)) 1 ampul NEB Q2HR NEB PRN PRN Reason: WHEEZING Atorvastatin Calcium (Lipitor) 20 mg PO HS [facility] Last Admin: 08/22/18 20:22 Dose: 20 mg Bisacodyl (Dulcolax Supp) 10 mg RECTAL DAILY PRN PRN Reason: SEVERE CONSITIPATION Carvedilol (Coreg) 3.125 mg PO BID [facility] Last Admin: 08/23/18 10:20 Dose: 3.125 mg Chlorhexidine Gluconate (Chlorhexidine 2% Cloth) 3 pack TOPICAL DAILY@0400 PRN PRN Reason: Extra cloth needed Stop: 08/24/18 03:59 Chlorhexidine Gluconate (Chlorhexidine 2% Cloth) 3 pack TOPICAL DAILY@0400 [facility] Stop: 08/24/18 03:59 Last Admin: 08/23/18 04:52 Dose: Not Given Enoxaparin Sodium (Lovenox Inj) 100 mg SQ Q12HR [facility] Last Admin: 08/23/18 10:20 Dose: 100 mg Sodium Chloride (Ns Inj) 1,000 mls @ 70 mls/hr IV.CONT .[id number] [facility] Last Admin: 08/22/18 23:27 Dose: Not Given Lactulose (Lactulose Liq) 30 ml PO DAILY PRN PRN Reason: SEVERE CONSITIPATION Ondansetron HCl (Zofran Inj) 4 mg IV.PUSH Q6H PRN PRN Reason: NAUSEA OR VOMITING Sacubitril/Valsartan (Entresto 24 Mg/26 Mg Tablet) 1 tab PO BID [facility] Last Admin: 08/23/18 10:20 Dose: 1 tab Senna/Docusate Sodium (Sheree-Colace) 1 tab PO BID [facility] Last Admin: 08/23/18 10:21 Dose: Not Given Sennosides (Senokot) 17.2 mg PO Q12H PRN PRN Reason: Moderate Constipation Sodium Chloride (Ns Flush) 2 ml IV.FLUSH BID [facility] Last Admin: 08/23/18 10:21 Dose: 2 ml Sodium Chloride (Ns Flush) 2 ml IV.FLUSH PRN PRN PRN Reason: FLUSH AFTER USING IV ACCESS Terbutaline Sulfate (Brethine Inj) 1 mg SQ UNSCH PRN PRN Reason: For Extravasation Warfarin Sodium (Coumadin) 7.5 mg PO DAILY@1600 [facility] Allergies/Adverse Reactions: Allergies Allergy/AdvReac Type Severity Reaction Status Date / Time No Known Allergies Allergy Verified 08/18/18 04:33 Physical Exam Vital signs: Vital Signs 08/22/18 11:00 08/22/18 12:00 08/22/18 16:00 Temperature 98.5 F 98.6 F Pulse Rate 92 H 82 88 Respiratory Rate 12 16 Blood Pressure 101/55 L 101/68 Pulse Oximetry 98 96 08/22/18 17:00 08/22/18 19:00 08/22/18 20:00 Temperature 99.0 F Pulse Rate 83 84 93 H Respiratory Rate 18 Blood Pressure 109/56 L Pulse Oximetry 99 08/22/18 20:06 08/22/18 20:20 08/22/18 21:00 Temperature 99.0 F Pulse Rate 93 H 89 Respiratory Rate 18 17 Blood Pressure 109/56 L Pulse Oximetry 99 97 08/22/18 21:21 08/22/18 22:00 08/22/18 23:00 Temperature Pulse Rate 84 87 88 Respiratory Rate 16 18 22 Blood Pressure Pulse Oximetry 08/22/18 23:31 08/23/18 00:00 08/23/18 01:00 Temperature 98.6 F Pulse Rate 85 86 83 Respiratory Rate 21 18 23 Blood Pressure 107/75 Pulse Oximetry 97 08/23/18 01:31 08/23/18 02:00 08/23/18 03:00 Temperature Pulse Rate 83 78 68 Respiratory Rate 23 22 24 Blood Pressure Pulse Oximetry 08/23/18 04:00 08/23/18 05:00 08/23/18 06:00 Temperature 98.3 F Pulse Rate 83 72 78 Respiratory Rate 20 15 18 Blood Pressure 99/59 L Pulse Oximetry 99 08/23/18 08:17 Temperature Pulse Rate Respiratory Rate Blood Pressure Pulse Oximetry 98 Intake & Output 08/22/18 08/23/18 08/23/18 18:59 06:59 18:59 Intake Total 660 / 660 400 / 400 Balance 660 / 660 400 / 400 Weight 94.8 kg Intake: Oral 660 / 660 400 / 400 Other: # Voids 4 4 Date of Last Bowel Movement 08/20/18 08/23/18 # Bowel Movements 0 1 Narrative: vff face sym nl speech nl gait Objective Laboratory Results - last 24 hr 08/23/18 05:22 PT 10.7 INR 1.1 Review/Management - Review/Management Plan: imp mri shows left frontal infarct acutely ef 20% ctax2 neg labs ok LA nl i thinks she should be anticoagulated with low ef and cva ct chest for ? mass needs fu cards to be consulted labs neg hyper pend coumadin or eliquis ok by me if fu ct no blood sp tpa ----- 08/21/18 i dw cards after loop i would start sq heparin or lovenox and coumadin and get inr 2-2.5 small likley embolic cva loop and jannette soon and stress test 08/23/18 loop in needs cardiac vest cannot afford will need [facility] here for inr draws and follow stable neuro i will sign off
[2018-08-23] MEDS: Sod Chloride 0.9% Inj 1,000 ML IV.CONT SCH (16:25)
[2018-08-23 23:53] LABS: Homocysteine (Cardiovascular) 8.2 umol/L (<10.4)
[2018-08-24 07:35] LABS: INR 1.2 Ratio; Prothrombin Time 11.7 sec (9.8-11.6)
[2018-08-24] MEDS: Sod Chloride 0.9% Inj 1,000 ML IV.CONT SCH (07:38)
[2018-08-24 08:03] LABS: Free T4 (Free Thyroxine) 1.01 ng/dL (0.76-1.46); Thyroid Stimulating Hormone 6.25 uIU/mL (0.358-3.740)
[2018-08-24] MEDS: Enoxaparin Inj 100 MG/ML Syringe SQ SCH ×2 (09:11→21:08)
[2018-08-24] MEDS: Senna/Docusate Sodium 8.6/50 MG Tablet PO SCH ×2 (09:11→21:07)
--- NOTE | 2018-08-24 11:53 | P.PN ---
Subjective Interval history: Follow-up acute CVA/cardiomyopathy August 24, 2018-patient seen and examined, no acute event overnight, no significant right upper extremity or lower extremity weakness. Patient denies any chest pain or shortness of breath. States she cannot afford a LifeVest. Physical Exam Vital signs: Vital Signs 08/23/18 12:00 08/23/18 12:23 08/23/18 13:00 Temperature 98.2 F Pulse Rate 78 85 83 Respiratory Rate 17 Blood Pressure 91/56 L Pulse Oximetry 96 08/23/18 16:00 08/23/18 18:00 08/23/18 19:00 Temperature 98.2 F 99.0 F Pulse Rate 81 85 83 Respiratory Rate 22 18 Blood Pressure 94/56 L 108/66 Pulse Oximetry 95 97 08/23/18 20:00 08/23/18 21:05 08/23/18 23:46 Temperature 98 F 97.9 F Pulse Rate 93 H 82 77 Respiratory Rate 18 18 Blood Pressure 104/59 L 102/67 Pulse Oximetry 97 96 96 08/23/18 23:55 08/24/18 04:00 08/24/18 05:18 Temperature 97.3 F L Pulse Rate 78 78 Respiratory Rate 16 Blood Pressure 89/65 L 90/65 L Pulse Oximetry 98 08/24/18 06:11 08/24/18 08:00 08/24/18 11:00 Temperature 97.5 F L Pulse Rate 77 Respiratory Rate 18 Blood Pressure 93/71 L 96/58 L Pulse Oximetry 95 96 Intake & Output 08/23/18 08/24/18 08/24/18 18:59 06:59 18:59 Intake Total 420 / 420 1200 / 1200 Output Total 1150 / 1150 Balance 420 / 420 50 / 50 Weight 100.2 kg Intake: Oral 420 / 420 1200 / 1200 Output: Urine 1150 / 1150 Other: # Voids 3 Date of Last Bowel Movement 08/20/18 08/23/18 08/23/18 # Bowel Movements 0 0 Narrative: GENERAL: NAD SKIN: Warm and dry. HEAD: Atraumatic. Normocephalic. EYES: Pupils equal and round. No scleral icterus. No injection or drainage. ENT: No nasal bleeding or discharge. Mucous membranes pink and moist. NECK: Trachea midline. No JVD. CARDIOVASCULAR: Regular rate and rhythm. RESPIRATORY: No accessory muscle use. Clear to auscultation. Breath sounds equal bilaterally. GASTROINTESTINAL: Abdomen soft, non-tender, nondistended. Hepatic and splenic margins not palpable. MUSCULOSKELETAL: Extremities without clubbing, cyanosis, or edema. No obvious deformities. NEUROLOGICAL: Awake and alert. No obvious cranial nerve deficits. Motor grossly within normal limits. Five out of 5 muscle strength in the arms and legs. Normal speech. PSYCHIATRIC: Appropriate mood and affect; insight and judgment normal. Results - Labs CBC & Chem 7: 08/22/18 05:53 08/22/18 05:53 Laboratory Results - last 24 hr 08/19/18 08/24/18 08/24/18 07:03 06:25 06:25 PT INR Homocysteine Cardiovas 8.2 TSH 6.250 H Free T4 1.01 Total T3 143 08/24/18 06:25 PT 11.7 H INR 1.2 Homocysteine Cardiovas TSH Free T4 Total T3 - Procedures TPA Loop recorder inserted Assessment and Plan - Plan 58-year-old female with Acute CVA Status post TPA Patient status post KELI and loop recorder placement Currently on Coumadin with Lovenox bridge, monitor INR. However may consider Eliquis Continue with Lipitor Nuclear stress test nonischemic Appreciate input from neurology who signed off Hypercoagulable panel pending Cardiomyopathy Continue Entresto and Coreg KELI confirms EF near 20% Will need LifeVest prior to discharge Nuclear stress test nonischemic Appreciate input from cardiology DVT prophylaxis SCDs Lovenox/Coumadin
[2018-08-24 18:16] LABS: Factor V Leiden Mutation Negative (Negative); Protein C Antigen 68 % (70-150)
[2018-08-25 07:53] LABS: Dil Russell Viper Venom Conf ( ND (NEGATIVE); Dil Russell Viper Venom Time M ND (CORRECTED); Lupus Anticoagulant PTT Screen 33 seconds (< OR = 40)
[2018-08-25] MEDS: Senna/Docusate Sodium 8.6/50 MG Tablet PO SCH ×2 (08:05→21:02)
[2018-08-25] MEDS: Enoxaparin Inj 100 MG/ML Syringe SQ SCH ×2 (08:05→21:02)
[2018-08-25] MEDS ORDERED: Warfarin Consult Pharmacy OTHER PRN (09:35)
--- NOTE | 2018-08-25 09:59 | P.PN ---
Subjective Interval history: Follow-up acute CVA/cardiomyopathy August 24, 2018-patient seen and examined, no acute event overnight, no significant right upper extremity or lower extremity weakness. Patient denies any chest pain or shortness of breath. States she cannot afford a LifeVest. August 25, 2018-patient seen and examined no complaint. BP low however patient is asymptomatic. Physical Exam Vital signs: Vital Signs 08/24/18 11:00 08/24/18 12:00 08/24/18 16:00 Temperature 97.7 F 97.8 F Pulse Rate 80 76 Respiratory Rate 20 18 Blood Pressure 101/58 L 89/52 L Pulse Oximetry 96 99 96 08/24/18 20:00 08/25/18 00:00 08/25/18 04:00 Temperature 98 F 97.7 F 97.5 F L Pulse Rate 82 78 63 Respiratory Rate 18 17 17 Blood Pressure 90/60 L 87/51 L 95/57 L Pulse Oximetry 98 95 93 L 08/25/18 07:36 08/25/18 08:00 Temperature 97.7 F Pulse Rate 79 78 Respiratory Rate Blood Pressure 92/61 L Pulse Oximetry 97 Intake & Output 08/24/18 08/25/18 08/25/18 18:59 06:59 18:59 Intake Total 720 / 720 720 / 720 Output Total 1750 / 1750 1600 / 1600 Balance -1030 / -1030 -880 / -880 Weight 101.4 kg Intake: Oral 720 / 720 720 / 720 Output: Urine 1750 / 1750 1600 / 1600 Other: Date of Last Bowel Movement 08/23/18 # Bowel Movements 1 0 Narrative: GENERAL: NAD SKIN: Warm and dry. HEAD: Atraumatic. Normocephalic. EYES: Pupils equal and round. No scleral icterus. No injection or drainage. ENT: No nasal bleeding or discharge. Mucous membranes pink and moist. NECK: Trachea midline. No JVD. CARDIOVASCULAR: Regular rate and rhythm. RESPIRATORY: No accessory muscle use. Clear to auscultation. Breath sounds equal bilaterally. GASTROINTESTINAL: Abdomen soft, non-tender, nondistended. Hepatic and splenic margins not palpable. MUSCULOSKELETAL: Extremities without clubbing, cyanosis, or edema. No obvious deformities. NEUROLOGICAL: Awake and alert. No obvious cranial nerve deficits. Motor grossly within normal limits. Five out of 5 muscle strength in the arms and legs. Normal speech. PSYCHIATRIC: Appropriate mood and affect; insight and judgment normal. Results - Labs CBC & Chem 7: 08/22/18 05:53 08/22/18 05:53 Laboratory Results - last 24 hr 08/19/18 08/19/18 07:03 07:03 Thrombin Time ND Lupus Anticoagulant LA PTT Screen 33 dRVVT Screen 34 LA dRVVT Confirm ND dRVVT Mix ND Hexagonal Phase Confirm ND Protein C Antigen 68 L Protein S Activity 131 Antithrombin III Activ 97 Factor V Leiden Mutat Negative Factor V Leiden Interp . Fact V Leiden Review By See below Factor VIII Activity 98 Beta-2-GPI IgG Ab <9 Beta-2-GPI IgA Ab <9 Beta-2-GPI IgM Ab <9 Anti-Cardiolipin IgG Ab <9.4 Anti-Cardiolipin IgM Ab 21.0 H MTHFR Mutation Detect Prothrombin [id number] Mut - Procedures TPA Loop recorder inserted Assessment and Plan - Plan 58-year-old female with Acute CVA Status post TPA Patient status post KELI and loop recorder placement Currently on Coumadin with Lovenox bridge, monitor INR. However may consider Eliquis Continue with Lipitor Nuclear stress test nonischemic Appreciate input from neurology who signed off Hypercoagulable panel pending Cardiomyopathy hold both Entresto and Coreg secondary to Hypotension. Will instead start Lopressor 12.5mg daily on 08/26/18 with holding parameters. Resume Entresto if BP>120/90 KELI confirms EF near 20% Will need LifeVest prior to discharge Nuclear stress test nonischemic Appreciate input from cardiology Hypotension 2/2 Medication side effect hold both Entresto and Coreg secondary to Hypotension Monitor BP DVT prophylaxis SCDs Lovenox/Coumadin
[2018-08-25 12:23] LABS: INR 1.5 Ratio; Prothrombin Time 15.2 sec (9.8-11.6)
[2018-08-26 07:04] LABS: INR 1.5 Ratio; Prothrombin Time 15.5 sec (9.8-11.6)
[2018-08-26 07:53] LABS: Activated Protein C Resistance 4.2 ratio (> OR = 2.1)
[2018-08-26] MEDS ORDERED: Metoprolol Tartrate 25 MG Tablet PO SCH (09:00)
[2018-08-26] MEDS: Enoxaparin Inj 100 MG/ML Syringe SQ SCH ×2 (10:42→20:31)
[2018-08-26] MEDS: Senna/Docusate Sodium 8.6/50 MG Tablet PO SCH (10:43)
--- NOTE | 2018-08-26 12:15 | P.PN ---
Subjective Interval history: Follow-up acute CVA/cardiomyopathy August 24, 2018-patient seen and examined, no acute event overnight, no significant right upper extremity or lower extremity weakness. Patient denies any chest pain or shortness of breath. States she cannot afford a LifeVest. August 25, 2018-patient seen and examined no complaint. BP low however patient is asymptomatic. August 26, 2018-patient seen and examined, BP low but no symptoms. otherwise stable Physical Exam Vital signs: Vital Signs 08/25/18 14:41 08/25/18 16:00 08/25/18 20:00 Temperature 98 F 98.5 F Pulse Rate 84 90 Respiratory Rate 18 17 Blood Pressure 94/62 L 103/61 Pulse Oximetry 96 100 100 08/26/18 00:00 08/26/18 04:00 08/26/18 08:00 Temperature 97.9 F 98.5 F 98.1 F Pulse Rate 83 90 86 Respiratory Rate 17 17 18 Blood Pressure 90/64 L 98/60 L 109/60 Pulse Oximetry 100 97 99 08/26/18 12:00 Temperature 98 F Pulse Rate 67 Respiratory Rate 18 Blood Pressure 90/59 L Pulse Oximetry 98 Intake & Output 08/25/18 08/26/18 08/26/18 18:59 06:59 18:59 Intake Total 1420 / 1420 720 / 720 Output Total 1550 / 1550 900 / 900 Balance -130 / -130 -180 / -180 Weight 100.3 kg Intake: Oral 1420 / 1420 720 / 720 Output: Urine 1550 / 1550 900 / 900 Other: Date of Last Bowel Movement 08/23/18 08/25/18 # Bowel Movements 1 1 Narrative: GENERAL: NAD SKIN: Warm and dry. HEAD: Atraumatic. Normocephalic. EYES: Pupils equal and round. No scleral icterus. No injection or drainage. ENT: No nasal bleeding or discharge. Mucous membranes pink and moist. NECK: Trachea midline. No JVD. CARDIOVASCULAR: Regular rate and rhythm. RESPIRATORY: No accessory muscle use. Clear to auscultation. Breath sounds equal bilaterally. GASTROINTESTINAL: Abdomen soft, non-tender, nondistended. Hepatic and splenic margins not palpable. MUSCULOSKELETAL: Extremities without clubbing, cyanosis, or edema. No obvious deformities. NEUROLOGICAL: Awake and alert. No obvious cranial nerve deficits. Motor grossly within normal limits. Five out of 5 muscle strength in the arms and legs. Normal speech. PSYCHIATRIC: Appropriate mood and affect; insight and judgment normal. Results - Labs CBC & Chem 7: 08/22/18 05:53 08/22/18 05:53 Laboratory Results - last 24 hr 08/19/18 08/25/18 08/26/18 07:03 11:34 06:25 PT 15.2 H 15.5 H INR 1.5 1.5 APC Resistance 4.2 Phosphatidylserine IgG Less than 10.0 Phosphatidylserine IgA Less than 20.0 Phosphatidylserine IgM Less than 25.0 - Procedures TPA Loop recorder inserted Assessment and Plan - Plan 58-year-old female with Acute CVA Status post TPA Patient status post KELI and loop recorder placement Currently on Coumadin with Lovenox bridge, monitor INR. However may consider Eliquis Continue with Lipitor Nuclear stress test nonischemic Appreciate input from neurology who signed off Hypercoagulable panel pending Cardiomyopathy hold both Entresto and Coreg secondary to Hypotension. Hold Lopressor 12.5mg daily . Resume Entresto if BP>120/90 KELI confirms EF near 20% Will need LifeVest prior to discharge Nuclear stress test nonischemic Appreciate input from cardiology Hypotension 2/2 Medication side effect hold both Entresto and Coreg secondary to Hypotension Monitor BP DVT prophylaxis SCDs Lovenox/Coumadin
[2018-08-27 07:07] LABS: INR 1.9 Ratio; Prothrombin Time 19.7 sec (9.8-11.6)
--- NOTE | 2018-08-27 10:54 | P.PN ---
Subjective Interval history: Follow-up acute CVA/cardiomyopathy August 27, 2018-patient seen and examined, INR up to 1.9, BP soft otherwise patient stable and has no complaint Physical Exam Vital signs: Vital Signs 08/26/18 12:00 08/26/18 16:00 08/26/18 17:34 Temperature 98 F 98.7 F Pulse Rate 67 86 Respiratory Rate 18 18 Blood Pressure 90/59 L 84/54 L Pulse Oximetry 98 99 99 08/26/18 20:00 08/27/18 00:00 08/27/18 04:00 Temperature 98.1 F 97.6 F 97.3 F L Pulse Rate 96 H 81 76 Respiratory Rate 18 18 18 Blood Pressure 100/56 L 91/57 L 109/68 Pulse Oximetry 98 97 96 08/27/18 06:00 08/27/18 08:00 Temperature 97.3 F L Pulse Rate 79 84 Respiratory Rate 18 Blood Pressure 120/65 Pulse Oximetry 99 Intake & Output 08/26/18 08/27/18 08/27/18 18:59 06:59 18:59 Intake Total 1590 / 1590 Output Total 1625 / 1625 Balance -35 / -35 Weight 100 kg Intake: Oral 1590 / 1590 Output: Urine 1625 / 1625 Other: Date of Last Bowel Movement 08/25/18 Narrative: GENERAL: NAD SKIN: Warm and dry. HEAD: Atraumatic. Normocephalic. EYES: Pupils equal and round. No scleral icterus. No injection or drainage. ENT: No nasal bleeding or discharge. Mucous membranes pink and moist. NECK: Trachea midline. No JVD. CARDIOVASCULAR: Regular rate and rhythm. RESPIRATORY: No accessory muscle use. Clear to auscultation. Breath sounds equal bilaterally. GASTROINTESTINAL: Abdomen soft, non-tender, nondistended. Hepatic and splenic margins not palpable. MUSCULOSKELETAL: Extremities without clubbing, cyanosis, or edema. No obvious deformities. NEUROLOGICAL: Awake and alert. No obvious cranial nerve deficits. Motor grossly within normal limits. Five out of 5 muscle strength in the arms and legs. Normal speech. PSYCHIATRIC: Appropriate mood and affect; insight and judgment normal. Results - Labs CBC & Chem 7: 08/22/18 05:53 08/22/18 05:53 Laboratory Results - last 24 hr 08/27/18 05:00 PT 19.7 H INR 1.9 - Procedures TPA Loop recorder inserted Assessment and Plan - Plan 58-year-old female with Acute CVA Status post TPA Patient status post KELI and loop recorder placement Currently on Coumadin with Lovenox bridge, as INR 1.9 today (08/27), will discontinue Lovenox, therefor will decrease Coumadin to 8 mg daily. Continue with Lipitor Nuclear stress test nonischemic Appreciate input from neurology who signed off Hypercoagulable panel report noted Cardiomyopathy KELI confirms EF near 20% Coreg was discontinued secondary to hypotension and replace by Lopressor 12.5mg daily . However with consistent hypotension, Lopressor was has been put on hold. Entresto as well is currently on hold due to hypotension. Resume Entresto if BP>120/90 stent Will need LifeVest prior to discharge Nuclear stress test nonischemic Appreciate input from cardiology Hypotension-Now improving 2/2 Medication side effect Continue to hold both Entresto and BB secondary to Hypotension Monitor BP DVT prophylaxis SCDs Lovenox/Coumadin
[2018-08-28 09:58] LABS: INR 2.4 Ratio; Prothrombin Time 24.7 sec (9.8-11.6)
--- NOTE | 2018-08-28 11:28 | P.PNIM ---
Subjective Interval history: Patient says she is feeling well. Denies any chest pain or shortness of breath. She says she was taking Adderall 20 mg 3 times daily prior to admission. Physical Exam Vital signs: Vital Signs 08/27/18 12:00 08/27/18 16:00 08/27/18 20:00 Temperature 97.5 F L 97.9 F 98 F Pulse Rate 84 78 86 Respiratory Rate 18 18 18 Blood Pressure 109/58 L 105/59 L 102/65 Pulse Oximetry 99 100 100 08/28/18 00:00 08/28/18 04:00 08/28/18 08:00 Temperature 97.4 F L 97.4 F L 97.6 F Pulse Rate 80 84 86 Respiratory Rate 18 20 Blood Pressure 122/61 106/64 112/54 L Pulse Oximetry 100 99 99 Intake & Output 08/27/18 08/28/18 08/28/18 18:59 06:59 18:59 Intake Total 1640 / 1640 Output Total 1700 / 1700 Balance -60 / -60 Weight 98.3 kg Intake: Oral 1640 / 1640 Output: Urine 1700 / 1700 Other: Date of Last Bowel Movement 08/25/18 # Bowel Movements 1 Narrative: GENERAL: NAD. Alert and oriented x3. SKIN: Warm and dry. HEAD: Atraumatic. Normocephalic. EYES: Pupils equal and round. No scleral icterus. No injection or drainage. ENT: No nasal bleeding or discharge. Mucous membranes pink and moist. NECK: Trachea midline. No JVD. CARDIOVASCULAR: Regular rate and rhythm. RESPIRATORY: No accessory muscle use. Clear to auscultation. Breath sounds equal bilaterally. GASTROINTESTINAL: Abdomen soft, non-tender, nondistended. Hepatic and splenic margins not palpable. MUSCULOSKELETAL: Extremities without clubbing, cyanosis, or edema. No obvious deformities. NEUROLOGICAL: Awake and alert. No obvious cranial nerve deficits. Motor grossly within normal limits. Five out of 5 muscle strength in the arms and legs. Normal speech. PSYCHIATRIC: Appropriate mood and affect; insight and judgment normal. Results - Labs CBC & Chem 7: 08/22/18 05:53 08/22/18 05:53 Laboratory Results - last 24 hr 08/28/18 08:29 PT 24.7 H INR 2.4 - Procedures TPA Loop recorder inserted Assessment and Plan - Plan 58-year-old female with //Acute CVA Status post TPA Patient status post KELI and loop recorder placement Currently on Coumadin with Lovenox bridge, as INR 1.9 today (08/27), will discontinue Lovenox, therefor will decrease Coumadin to 8 mg daily. Continue with Lipitor Nuclear stress test nonischemic Appreciate input from neurology who signed off Hypercoagulable panel report noted //Cardiomyopathy KELI confirms EF near 20% Coreg was discontinued secondary to hypotension and replace by Lopressor 12.5mg daily . However with consistent hypotension, Lopressor was has been put on hold. Entresto as well is currently on hold due to hypotension. Resume Entresto if BP>120/90 stent Will need LifeVest prior to discharge Nuclear stress test nonischemic Appreciate input from cardiology = Patient did not tolerate blood pressure meds, hypotension with Lopressor. Patient reports taking Adderall 20 mg 3 times daily prior to admission. Amphetamines positive on urine drug screen from admission. Suspect cardiomyopathy is secondary to chronic Adderall use. I advised patient to discontinue completely. As patient has normal heart rate at this time, has been off amphetamines for the past week, will recheck ejection fraction. If above 30% patient will not need LifeVest at discharge. //Hypotension-Now improving 2/2 Medication side effect Continue to hold both Entresto and BB secondary to Hypotension Monitor BP DVT prophylaxis SCDs Lovenox/Coumadin Discussed Condition With: Patient, nurse. Discharge Planning: Repeat echocardiogram. Patient has been off amphetamines times 1 week. If ejection fraction above 30%, can go home without LifeVest.
--- NOTE | 2018-08-28 17:56 | ECHRPT ---
Indication: CARDIOMYOPATHY CONCLUSIONS The left ventricular systolic function is moderately to severely reduced with an estimated ejection fraction in the range of 30-35%. Severely dilated left ventricle. Wall thickness is normal. Mild mitral regurgitation. BP: / HR: Rhythm: Sinus MEASUREMENTS (Male / Female) Normal Values Technical Quality:Good 2D ECHO LV Diastolic Diameter PLAX 6.5 cm 4.2 - 5.9 / 3.9 - 5.3 cm LV Systolic Diameter PLAX 5.3 cm IVS Diastolic Thickness 1.0 cm 0.6 - 1.0 / 0.6 - 0.9 cm LVPW Diastolic Thickness 1.0 cm 0.6 - 1.0 / 0.6 - 0.9 cm LV Relative Wall Thickness 0.3 LV Ejection Fraction MOD BP 30.7 % >= 55 % LV Ejection Fraction MOD 4C 34.2 % LV Ejection Fraction 4C AL 35.3 % LV Ejection Fraction MOD 2C 31.2 % LV Ejection Fraction 2C AL 35.8 % M-MODE LV Diastolic Diameter MM 7.1 cm 4.2 - 5.9 / 3.9 - 5.3 cm LV Systolic Diameter MM 6.1 cm LV Ejection Fraction MM Teich 30.1 % IVS Diastolic Thickness MM 1.0 cm 0.6 - 1.0 / 0.6 - 0.9 cm LVPW Diastolic Thickness MM 1.0 cm 0.6 - 1.0 / 0.6 - 0.9 cm LV Relative Wall Thickness MM 0.3 0.24 - 0.42 / 0.22 - 0.42 FINDINGS LEFT VENTRICLE The left ventricular systolic function is moderately to severely reduced with an estimated ejection fraction in the range of 30-35%. Severely dilated left ventricle. Wall thickness is normal. Nallely Quintero MD, FACC (Electronically Signed) Final Date:28 August 2018 17:56
[2018-08-29 06:43] LABS: INR 2.2 Ratio; Prothrombin Time 21.8 sec (9.8-11.6)
[2018-08-29 09:11] VITALS: BP 108/55; RESP 18; TEMP 97; O2SAT 98
--- NOTE | 2018-08-29 09:14 | P.PNIM ---
Subjective Interval history: Patient again says she is feeling well. Denies any chest pain or shortness of breath. Patient is happy to hear that her ejection fraction is now 30-35% likely improved due to discontinuation of Adderall. 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 Although patient seems skeptical, she agrees to stop Adderall and avoid any stimulants. Physical Exam Vital signs: Vital Signs 08/28/18 11:55 08/28/18 12:00 08/28/18 16:00 Temperature 98.5 F Pulse Rate 86 85 Respiratory Rate 20 Blood Pressure 101/69 Pulse Oximetry 98 99 08/28/18 20:00 08/28/18 23:28 08/29/18 00:00 Temperature 97.5 F L 98.2 F Pulse Rate 84 75 76 Respiratory Rate 20 18 Blood Pressure 102/59 L 111/65 Pulse Oximetry 99 98 08/29/18 04:00 Temperature 97.5 F L Pulse Rate 80 Respiratory Rate 16 Blood Pressure 104/69 Pulse Oximetry 99 Intake & Output 08/28/18 08/29/18 08/29/18 18:59 06:59 18:59 Intake Total 960 / 960 Output Total 1350 / 1350 Balance -390 / -390 Weight 98.5 kg Intake: Oral 960 / 960 Output: Urine 1350 / 1350 Other: Date of Last Bowel Movement 08/25/18 08/25/18 # Bowel Movements 1 Narrative: GENERAL: NAD. Alert and oriented x3. no change on exam. SKIN: Warm and dry. HEAD: Atraumatic. Normocephalic. EYES: Pupils equal and round. No scleral icterus. No injection or drainage. ENT: No nasal bleeding or discharge. Mucous membranes pink and moist. NECK: Trachea midline. No JVD. CARDIOVASCULAR: Regular rate and rhythm. RESPIRATORY: No accessory muscle use. Clear to auscultation. Breath sounds equal bilaterally. GASTROINTESTINAL: Abdomen soft, non-tender, nondistended. Hepatic and splenic margins not palpable. MUSCULOSKELETAL: Extremities without clubbing, cyanosis, or edema. No obvious deformities. NEUROLOGICAL: Awake and alert. No obvious cranial nerve deficits. Motor grossly within normal limits. Five out of 5 muscle strength in the arms and legs. Normal speech. PSYCHIATRIC: Appropriate mood and affect; insight and judgment normal. Results - Labs CBC & Chem 7: 08/22/18 05:53 08/22/18 05:53 Laboratory Results - last 24 hr 08/28/18 08/29/18 08:29 05:23 PT 24.7 H 21.8 H INR 2.4 2.2 - Procedures TPA Loop recorder inserted Assessment and Plan - Plan 58-year-old female with //Acute CVA Status post TPA Patient status post KELI and loop recorder placement Currently on Coumadin with Lovenox bridge, as INR 1.9 today (08/27), will discontinue Lovenox, therefor will decrease Coumadin to 8 mg daily. Continue with Lipitor Nuclear stress test nonischemic Appreciate input from neurology who signed off Hypercoagulable panel report noted = INR therapeutic times 2 days. Will discharge to warfarin. Patient will need to follow-up with primary care for adjustment of warfarin with the next week. Patient conveys understanding. //Cardiomyopathy KELI confirms EF near 20% Coreg was discontinued secondary to hypotension and replace by Lopressor 12.5mg daily . However with consistent hypotension, Lopressor was has been put on hold. Entresto as well is currently on hold due to hypotension. Resume Entresto if BP>120/90 stent Will need LifeVest prior to discharge Nuclear stress test nonischemic Appreciate input from cardiology = Patient did not tolerate blood pressure meds, hypotension with Lopressor. Patient reports taking Adderall 20 mg 3 times daily prior to admission. Amphetamines positive on urine drug screen from admission. Suspect cardiomyopathy is secondary to chronic Adderall use. I advised patient to discontinue completely. As patient has normal heart rate at this time, has been off amphetamines for the past week, will recheck ejection fraction. If above 30% patient will not need LifeVest at discharge. = Injections fraction 30-35%. Improved after the past week. Likely secondary to medication induced cardiomyopathy from Adderall use. Patient will continue to hold off on Adderall and any stimulants. Patient conveys understanding. //Hypotension-Now improving 2/2 Medication side effect Continue to hold both Entresto and BB secondary to Hypotension Monitor BP DVT prophylaxis SCDs Lovenox/Coumadin Discharge Planning: Section fraction 30-35%. Patient did not tolerate heart failure medications. Will discharge home on warfarin. Patient is to follow-up with primary care for adjustment of warfarin.
--- NOTE | 2018-08-29 09:24 | P.DS ---
Date of admission: 08/18/18 06:16 Primary care physician: No Primary Care Physician Brief History from admission: 58-year-old female with no major medical problems who developed sudden onset loss of speech this morning with left-sided weakness for which EMS was called and patient was brought to the ER at [facility]. A stroke alert was called and Dr. Graves from neurology evaluated patient by [facility]. Head CT was negative for bleed, CTA was unremarkable. Patient was administered IV TPA and subsequently accepted for admission by critical care medicine service and admitted to the ICU. Her symptoms resolved immediately after TPA administration. Subsequent MRI brain did not show any restricted diffusion. Patient did not have any focal deficits and regain her speech and was moved to the ICU. When I evaluated her at this evening she was laying in bed not in any acute distress moving all 4 extremities with normal speech. She felt that she is back to normal. She denied any similar episodes before. 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 She tells me she has had some PVCs before for which she had a cardiac catheterization done in 2016 in [place] and everything was normal. Patient has had bilateral total knee replacements a few years ago. DS: Medications - Discharge Medications Prescriptions: warfarin [Coumadin] 5 mg PO DAILY@1600 30 Days tab DS: Summary Hospital Course: 58-year-old female with who presented with sudden loss of speech and left-sided weakness. Her symptoms resolved immediately after TPA administration. MRI did not show any acute findings. Patient found to have ejection fraction of 20% on echocardiogram with dilated left ventricle. She was started on warfarin which was therapeutic by the time of discharge. Patient also underwent myocardial perfusion scan which showed no reversible perfusion defects. Beta-blockers as well as GERMAN inhibitors were attempted however patient experienced hypotension with these medications. Patient had been using Adderall for treatment of attention deficit disorder and this was held during admission. Ejection fraction measured on echocardiogram on 08/28 improved to 30-35%, likely due to improved heart rate, secondary to being off Adderall for 1 week. Patient will continue to avoid Adderall or any stimulants. She will need to follow-up with primary care to adjust warfarin within 1 week. She will also need to follow-up with cardiology as outpatient. She conveys understanding. For problem based summary from most recent progress note, please see below. //Acute CVA Status post TPA Patient status post KELI and loop recorder placement Currently on Coumadin with Lovenox bridge, as INR 1.9 today (08/27), will discontinue Lovenox, therefor will decrease Coumadin to 8 mg daily. Continue with Lipitor Nuclear stress test nonischemic Appreciate input from neurology who signed off Hypercoagulable panel report noted = INR therapeutic times 2 days. Will discharge to warfarin. Patient will need to follow-up with primary care for adjustment of warfarin with the next week. Patient conveys understanding. //Cardiomyopathy KELI confirms EF near 20% Coreg was discontinued secondary to hypotension and replace by Lopressor 12.5mg daily . However with consistent hypotension, Lopressor was has been put on hold. Entresto as well is currently on hold due to hypotension. Resume Entresto if BP>120/90 stent Will need LifeVest prior to discharge Nuclear stress test nonischemic Appreciate input from cardiology = Patient did not tolerate blood pressure meds, hypotension with Lopressor. Patient reports taking Adderall 20 mg 3 times daily prior to admission. Amphetamines positive on urine drug screen from admission. Suspect cardiomyopathy is secondary to chronic Adderall use. I advised patient to discontinue completely. As patient has normal heart rate at this time, has been off amphetamines for the past week, will recheck ejection fraction. If above 30% patient will not need LifeVest at discharge. = Injections fraction 30-35%. Improved after the past week. Likely secondary to medication induced cardiomyopathy from Adderall use. Patient will continue to hold off on Adderall and any stimulants. Patient conveys understanding. //Hypotension-Now improving 2/2 Medication side effect Continue to hold both Entresto and BB secondary to Hypotension Monitor BP DVT prophylaxis SCDs Lovenox/Coumadin Discharge Planning: Section fraction 30-35%. Patient did not tolerate heart failure medications. Will discharge home on warfarin. Patient is to follow-up with primary care for adjustment of warfarin. - Time Spent with Patient Total time spent providing and/or coordinating discharge services: Greater than 30 minutes - Quality: Stroke Last date observed well: 08/18/18 Last time observed well: 03:35 Exam Vital signs: Vital Signs 08/28/18 11:55 08/28/18 12:00 08/28/18 16:00 Temperature 98.5 F Pulse Rate 86 85 Respiratory Rate 20 Blood Pressure 101/69 Pulse Oximetry 98 99 08/28/18 20:00 08/28/18 23:28 08/29/18 00:00 Temperature 97.5 F L 98.2 F Pulse Rate 84 75 76 Respiratory Rate 20 18 Blood Pressure 102/59 L 111/65 Pulse Oximetry 99 98 08/29/18 04:00 08/29/18 08:00 Temperature 97.5 F L 97 F L Pulse Rate 80 83 Respiratory Rate 16 18 Blood Pressure 104/69 108/55 L Pulse Oximetry 99 98 Intake & Output 08/28/18 08/29/18 08/29/18 18:59 06:59 18:59 Intake Total 960 / 960 Output Total 1350 / 1350 Balance -390 / -390 Weight 98.5 kg Intake: Oral 960 / 960 Output: Urine 1350 / 1350 Other: Date of Last Bowel Movement 08/25/18 08/25/18 # Bowel Movements 1 Results Procedures completed during hospitalization: TPA Loop recorder inserted Labs on day of discharge: Labs from last 24 hours 08/29/18 08/28/18 05:23 08:29 PT 21.8 H 24.7 H INR 2.2 2.4 - Impressions ITS Impressions Chest X-Ray 08/18/18 04:34 CONCLUSION: Findings of interstitial edema. Head CTA 08/18/18 04:34 CONCLUSION: Unremarkable CT angiography of the brain. Report was called by Dr. Claros to Dr. Graves at 0548. Neck CTA 08/18/18 04:34 CONCLUSION: Negative CT angiography of the carotid arteries. Soft tissue density surrounding the thoracic arch as described above. Contrast- enhanced CT scan of the chest is recommended for further evaluation. Head MRI 08/18/18 07:18 CONCLUSION: 1. Negative for acute process 2. Prominent empty sella. 3. There is no restricted diffusion to suggest acute ischemic event. Chest CT 08/19/18 00:00 CONCLUSION: 1. Extensive bilateral pulmonary parenchymal opacity, predominantly groundglass opacity with areas of consolidation. Most likely etiology is pulmonary edema. Bilateral pleural effusions right greater than left also noted. 2. Density seen adjacent to the aorta on recent CTA neck corresponds to small pericardial effusion. Aorta is within normal limits. 3. Masslike area of opacity in the right upper lung at the margin of pulmonary consolidation. Recommend follow-up noncontrast chest CT at the resolution of acute illness to exclude an underlying mass. 4. Mildly prominent mediastinal lymph nodes likely reactive. 5. Subacute to chronic appearing nonunited fracture of the sternal body. 6. Cholelithiasis. Head CT 08/19/18 04:55 CONCLUSION: Small acute infarct in the medial left frontal lobe now seen correlating with finding on recent MRI. No evidence of acute intracranial hemorrhage. . Myocardial Perfusion Scan Nuc Med 08/21/18 00:00 CONCLUSION: 1. No reversible perfusion defects. 2. Nonischemic cardiomyopathy with ejection fraction 60%. Discharge Plan - Discharge Disposition Patient Disposition: Discharge Home - Discharge Condition Condition: Stable - Discharge Order Discharge Orders: Discharge Order (Routine); Ordered 08/29/18 Ordered By: Vik Hurley - Discharge Details Anticipated Discharge Date: 08/29/18 - Physicians Team Primary Care Provider: Primary Care Dalton,Mayela Attending Provider: Vik Hurley Other Providers: Leonora Gold MD ; Constantino Harris MD
[2018-08-29 10:31] VITALS: PULSE 79
== END 2018-08-29 10:35 | disposition home or self-care (01) ==
LOC: PHED 04:28 → PHEDA 06:16 → PHICU 07:50 → PH3 08-19 17:24 → N03 08-20 10:57 → N04 08-23 20:49
PROVIDERS: ADMIT Internal Medicine; ATTEND Internal Medicine